=== PATIENT | female | born 1945 | race Caucasian/White ===

== ENCOUNTER → 2016-03-18 | Outpatient (CLI) | payer MEDICARE ==
--- NOTE | 2016-03-19 08:55 | MM ---
Reason for exam: screening (asymptomatic). Last mammogram was performed 1 year ago. History: Patient is postmenopausal and is nulliparous. Physical Findings: A clinical breast exam by your physician is recommended on an annual basis and results should be correlated with mammographic findings. MG Screening Mammo w CAD Bilateral CC and MLO view(s) were taken. Prior study comparison: March 15, 2015, bilateral MG screening mammo w CAD. March 03, 2014, bilateral MG screening mammo w CAD. The breast tissue is extremely dense which could obscure a lesion on mammography. Benign calcifications bilaterally. ASSESSMENT: Benign, BI-RAD 2 RECOMMENDATION: Routine screening mammogram of both breasts in 1 year.
== END | disposition home or self-care (01) ==
LOC: RADMAMWWP 09:41
PROVIDERS: ATTEND Obstetrics & Gynecology
DX: Z12.31 Encounter for screening mammogram for malignant neoplasm of breast (principal)

== ENCOUNTER → 2017-03-24 | Outpatient (CLI) | payer MEDICARE ==
--- NOTE | 2017-03-24 13:17 | BD ---
EXAMINATION TYPE: MG DEXA axial skeleton. DATE OF EXAM: 03/24/2017 COMPARISON: 03.03.2014 DEXA bone scan CLINICAL HISTORY: 71 YR OLD FEMALE: ICD-10 CODE: M85.9 OSTEOPENIA, Z13.820 OSTEOPOROSIS SCREEN Height: 61.2 Weight: 139 FRAX RISK QUESTIONS: Alcohol (3 or more units per day): NO Family History (Parent hip fracture): NO Glucocorticoids (More than 3mos): NO (Ex: prednisone, prednisolone, methylprednisolone, dexamethasone, and hydrocortisone). History of Fracture in Adulthood: NO Secondary Osteoporosis: NO 1. Type 1 Diabetes: NO 2. Hyperthyroidism: NO 3. Menopause before 45: NO 4. Malnutrition: NO 5. Chronic liver disease: NO Rheumatoid Arthritis: NO Current Tobacco Use: NO RISK FACTORS HISTORY OF: Family History of Osteoporosis: YES, HER MOTHER, NO FX Active: SOMEWHAT Diet low in dairy products/other sources of calcium: YES, LOW, ALLERGY Postmenopausal woman: YES, AT 52 Lost more than 2 inches in height since high school: NOT QUITE Hyperparathyroidism: NO Adrenal Insufficiency: NO MEDICATIONS: Osteoporosis Medications: TOOK IN PAST, ACTENOL X5 YRS, STOPPED FEW YRS AGO Additional Medications: CALCIUM AND VIT, WELLBUTRIN, REFLUX MEDS, STATIN FOR CHOLESTEROL, PROBIOTICS Additional History: EPIDURALS LUMBAR SPINE, NERVE ENDINGS BURNED IN LOWER SPINE, EXAM MEASUREMENTS: Bone mineral densitometry was performed using the [employer]. Bone mineral density as measured about the Lumbar spine is: ----- L1-L4(G/cm2): 1.289 T Score Values are as follows: ----- L1: 0.5 ----- L2: 0.2 ----- L3: 1.1 ----- L4: 1.5 ----- L1-L4: 0.9 Bone mineral density has: Increased 7.5% since study of: 03.03.2014 Bone mineral density about the R hip (g/cm2): 0.817 Bone mineral density about the L hip (g/cm2): 0.862 T Score values are as follows: -----R Neck: -2.1 -----L Neck: -2.0 -----R Total: -1.5 -----L Total: -1.2 Bone mineral density has: Increased 1.3% since study of: 03.03.2014 FRAX%S: THERE IS A 20.1% CHANCE OF A MAJOR OSTEOPOROTIC FX AND A 4.8% FOR HIP FX....PROBABILITY O F FX IN 10 YRS TIME IMPRESSION: Osteopenia (T Score between -2.5 and -1 as noted by T score values in both hips remains present. The re remains slightly increased risk of fracture and the patient may be considered for treatment. Re-Sc reen 2-5 years. NOTE: T-SCORE=SD OF THE YOUNG ADULT MEAN.
--- NOTE | 2017-03-25 07:53 | MM ---
Reason for exam: screening (asymptomatic). Last mammogram was performed 1 year ago. History: Patient is postmenopausal and is nulliparous. Physical Findings: A clinical breast exam by your physician is recommended on an annual basis and results should be correlated with mammographic findings. MG Screening Mammo w CAD Bilateral CC and MLO view(s) were taken. Prior study comparison: March 18, 2016, bilateral MG screening mammo w CAD. March 15, 2015, bilateral MG screening mammo w CAD. The breast tissue is heterogeneously dense. This may lower the sensitivity of mammography. Benign calcifications in the left breast. There is no discrete abnormality. No significant changes when compared with prior studies. ASSESSMENT: Benign, BI-RAD 2 RECOMMENDATION: Routine screening mammogram of both breasts in 1 year.
== END | disposition home or self-care (01) ==
LOC: RADMAMWWP 10:20
PROVIDERS: ATTEND Obstetrics & Gynecology
DX: Z12.31 Encounter for screening mammogram for malignant neoplasm of breast (principal); M85.80 Other specified disorders of bone density and structure, unspecified site; Z80.3 Family history of malignant neoplasm of breast
CPT/HCPCS: 77067; 77080

== ENCOUNTER → 2018-03-25 | Outpatient (CLI) | payer MEDICARE ==
--- NOTE | 2018-03-26 10:04 | MM ---
Reason for exam: screening (asymptomatic). Last mammogram was performed 1 year ago. History: Patient is postmenopausal and is nulliparous. Physical Findings: A clinical breast exam by your physician is recommended on an annual basis and results should be correlated with mammographic findings. MG Screening Mammo w CAD Bilateral CC and MLO view(s) were taken. Prior study comparison: March 24, 2017, bilateral MG screening mammo w CAD. March 18, 2016, bilateral MG screening mammo w CAD. The breast tissue is heterogeneously dense. This may lower the sensitivity of mammography. Stable calcifications. There is chronic nodularity bilaterally. There is no dominant lesion. No significant changes when compared with prior studies. ASSESSMENT: Benign, BI-RAD 2 RECOMMENDATION: Routine screening mammogram of both breasts in 1 year.
== END | disposition home or self-care (01) ==
LOC: RADMAMWWP 12:49
PROVIDERS: ATTEND Obstetrics & Gynecology
DX: Z12.31 Encounter for screening mammogram for malignant neoplasm of breast (principal)
CPT/HCPCS: 77067

== ENCOUNTER 2018-06-09 09:17 | Day surgery (SDC) | payer MEDICARE ==
[2018-06-02 16:06] VITALS: BMI 25.0
[~2018-06-09 09:17] MED LIST: HYDROmorphone 0.5 MG/0.5 ML SYRINGE IVP PRN; LACTATED RINGERS 1,000 ML IV SCH; MIDAZOLAM (PF) 2 MG/2 ML VIAL IV PRN; ONDANSETRON 4 MG/2 ML VIAL IVP ONE; Pre Op ABX Message 1 EACH MISC MISCELLANE ONE
[2018-06-09] MEDS ORDERED: LIDOCAINE 1% 20 ML VIAL (10MG/ML) FOR IV START INTRADERMA ONE (10:01)
[2018-06-09 10:25] VITALS: TEMP 97.9
[2018-06-09] MEDS ORDERED: PROPOFOL 10 MG/ML 20 ML VIAL IV ONE (10:46)
[2018-06-09] MEDS ORDERED: MIDAZOLAM 2 MG/2 ML VIAL ONE (10:46)
[2018-06-09] MEDS ORDERED: BUPIVACAINE (PF) 0.5% 30 ML VIAL SQ ONE (10:58)
[2018-06-09] MEDS ORDERED: LIDOCAINE 2% INJ 20 MG/ML SQ ONE (10:58)
[2018-06-09 11:48] VITALS: BP 145/77; PULSE 76; RESP 16
--- NOTE | 2018-06-09 18:32 | OP ---
OPERATIVE REPORT DATE OF PROCEDURE: 06/09/2018 PREOPERATIVE DIAGNOSES: 1. Mass, palm of left hand. 2. Left ring trigger finger. FINAL DIAGNOSES: 1. Mass, palm of left hand. 2. Left ring trigger finger. PROCEDURES: 1. Excision of mass, palm and the left ring finger. 2. Left ring trigger finger release. GROSS PATHOLOGY: The mass was most likely a benign fibrous nodule. There was no evidence of a ganglion cyst along the flexor tendon sheath in this area. There was some minor fraying of the superficial portion of the flexor digitorum superficialis, which is likely the cause of the triggering. PROCEDURE DESCRIPTION: This 72-year-old woman was taken to the operative suite, given IV sedation, and a local anesthetic consisting of Xylocaine and Marcaine, both without epinephrine, was injected at the base of the left ring finger in the distal palmar skin crease. The hand was prepped and draped in the usual manner. It was elevated and exsanguinated. Cuff was inflated to 250 mmHg. A transverse incision was made in the distal palmar skin crease. Procedure was performed under 4.5 loupe magnification. The tender mass intraoperatively appeared to be most likely benign fibrous nodule. This was excised under blunt and sharp dissection and was sent to the lab as a specimen. The A1 juan was then identified and released longitudinally. The flexor tendon was retracted in the wound to ensure no adhesions or further triggering was present. Some minor superficial fraying was noted as described above. The wound was then thoroughly irrigated. Tourniquet was released. Hemostasis was satisfactory with pressure. The wound was closed with 5-0 nylon suture. Soft bulky dressing was applied. She was taken to the recovery room in satisfactory condition. MMODL / IJN: [id number] /
== END 2018-06-09 11:52 | disposition home or self-care (01) ==
LOC: OR 09:17
PROVIDERS: ATTEND Orthopaedic Surgery Hand Surgery
DX: M65.342 Trigger finger, left ring finger (principal); R22.9 Localized swelling, mass and lump, unspecified; E78.5 Hyperlipidemia, unspecified; M79.7 Fibromyalgia; F32.9 Major depressive disorder, single episode, unspecified; M85.80 Other specified disorders of bone density and structure, unspecified site; K21.9 Gastro-esophageal reflux disease without esophagitis; K58.9 Irritable bowel syndrome, unspecified; Z79.1 Long term (current) use of non-steroidal anti-inflammatories (NSAID); Z79.891 Long term (current) use of opiate analgesic; Z79.899 Other long term (current) drug therapy; Z88.2 Allergy status to sulfonamides; H40.9 Unspecified glaucoma; F39 Unspecified mood [affective] disorder
CPT/HCPCS: 88304; 11422; 26055; J2001; J2250; J2405; J2704

== ENCOUNTER → 2018-07-20 | Outpatient (CLI) | payer MEDICARE | END | disposition home or self-care (01) | LOC: LABWHC1 11:00 | PROVIDERS: ATTEND Nurse Practitioner Family | DX: J30.89 Other allergic rhinitis (principal) | CPT/HCPCS: 36415 ==

== ENCOUNTER → 2019-03-29 | Outpatient (CLI) | payer MEDICARE ==
--- NOTE | 2019-03-29 11:25 | MM ---
Reason for exam: screening (asymptomatic). Last mammogram was performed 1 year ago. History: Patient is postmenopausal and is nulliparous. Family history of breast cancer in maternal aunt at age 85. Physical Findings: A clinical breast exam by your physician is recommended on an annual basis and results should be correlated with mammographic findings. MG 3D Screening Mammo W/Cad Bilateral CC and MLO view(s) were taken. Prior study comparison: March 25, 2018, bilateral MG screening mammo w CAD. March 24, 2017, bilateral MG screening mammo w CAD. The breast tissue is heterogeneously dense. This may lower the sensitivity of mammography. Benign appearing bilateral calcifications. No suspicious abnormality. No significant changes when compared with prior studies. ASSESSMENT: Benign, BI-RAD 2 RECOMMENDATION: Routine screening mammogram of both breasts in 1 year.
== END | disposition home or self-care (01) ==
LOC: RADMAMWWP 10:13
PROVIDERS: ATTEND Obstetrics & Gynecology
DX: Z12.31 Encounter for screening mammogram for malignant neoplasm of breast (principal)
CPT/HCPCS: 77063; 77067

== ENCOUNTER → 2020-04-24 | Outpatient (CLI) | payer MEDICARE ==
--- NOTE | 2020-04-24 17:08 | BD ---
EXAMINATION TYPE: Axial Bone Density DATE OF EXAM: 04/24/2020 COMPARISON: 03.24.2017 CLINICAL HISTORY: 74 YR OLD FEMALE.....ICD-10 CODE: N95.1 POST MENOPAUSAL Height: 60.4 Weight: 142 FRAX RISK QUESTIONS: Glucocorticoids (More than 3mos): YES (Ex: prednisone, prednisolone, methylprednisolone, dexamethasone, and hydrocortisone). RISK FACTORS HISTORY OF: Surgery to Spine ONLY EPIDURAL AND NERVE SURG IN BACK Family History of Osteoporosis: YES, MOTHER SPINAL COMPRESSION FXS Diet low in dairy products/other sources of calcium: YES Postmenopausal woman: YES, AT AGE 52 YRS Lost more than 2 inches in height since high school: YES Hyperparathyroidism: UNSURE Adrenal Insufficiency: UNSURE MEDICATIONS: Prednisone or other steroids: YES, INHALERS FOR ASTHMA, AND EYE MEDS Osteoporosis Medications: ALTENOL FOR 5 YRS, OFF FOR ABOUT 10+ YRS Additional Medications: WELLBUTRIN, REFLUX, STATIN FOR CHOLESTEROL, CALCIUM AND MULTIVITAMIN, VIT D, RELAFEN, GABAPENTIN, Additional History: REFLUX, CHOLESTEROL, OSTEOARTHRITIS, FIBROMYALGIA, EXAM MEASUREMENTS: Bone mineral densitometry was performed using the [employer]. Bone mineral density as measured about the Lumbar spine is: ----- L1-L4(G/cm2): 1.260 T Score Values are as follows: ----- L1: 0.4 ----- L2: -0.2 ----- L3: 1.2 ----- L4: 1.1 ----- L1-L4: 0.6 Bone mineral density has: Decreased -2.6% SINCE 03.24.2017 STUDY Bone mineral density about the R hip (g/cm2): 0.823 Bone mineral density about the L hip (g/cm2): 0.881 T Score values are as follows: -----R Neck: -2.0 -----L Neck: -2.1 -----R Total: -1.5 -----L Total: -1.0 Bone mineral density has: Increased 1.4% SINCE 03.24.2017 STUDY FRAX%s: THERE IS A 32.4% CHANCE FOR A MAJOR OSTEOPOROTIC FX AND A 15.3% FOR HIP......PROBABILITY FO R FX IN 10 YRS TIME IMPRESSION: Osteopenia (T Score between -2.5 and -1). There is slightly increased risk of fracture and the patient may be considered for treatment. Re-Screen 2-5 years. NOTE: T-SCORE=SD OF THE YOUNG ADULT MEAN.
--- NOTE | 2020-04-25 11:27 | MM ---
Reason for exam: screening (asymptomatic). Last mammogram was performed 1 year and 1 month ago. History: Patient is postmenopausal and is nulliparous. Family history of breast cancer in maternal aunt at age 85. Physical Findings: A clinical breast exam by your physician is recommended on an annual basis and results should be correlated with mammographic findings. MG 3D Screening Mammo W/Cad Bilateral CC and MLO view(s) were taken. Prior study comparison: March 29, 2019, bilateral MG 3d screening mammo w/cad. March 25, 2018, bilateral MG screening mammo w CAD. The breast tissue is heterogeneously dense. This may lower the sensitivity of mammography. There are benign appearing round calcifications bilaterally. Previous mammotome biopsy in the left breast. There is chronic nodularity in the left axilla. There is no discrete abnormality. ASSESSMENT: Benign, BI-RAD 2 RECOMMENDATION: Routine screening mammogram of both breasts in 1 year.
== END | disposition home or self-care (01) ==
LOC: RADMAMWWP 10:07
PROVIDERS: ATTEND Obstetrics & Gynecology
DX: Z12.31 Encounter for screening mammogram for malignant neoplasm of breast (principal); M85.80 Other specified disorders of bone density and structure, unspecified site
CPT/HCPCS: 77063; 77067; 77080

== ENCOUNTER 2020-07-09 20:15 | Emergency (ER) | payer MEDICARE ==
[2020-07-09 20:20] VITALS: TEMP 98.6
[2020-07-09] MEDS ORDERED: traMADol 50 MG TAB PO STA (21:15)
--- NOTE | 2020-07-09 21:20 | ED ---
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 Place Fall Occurred: home Loss of Consciousness: none Prolonged Down Time?: no Symptoms Prior to Fall: none Location - Extremities: Left: Thigh, Leg Severity scale (1-10): 9 Quality: aching Context: tripped/slipped Associated Symptoms: denies <Evans Duarte - Last Filed: 07/09/20 22:43> <Skyler Gonzalez - Last Filed: 07/09/20 23:10> - General Chief Complaint: Fall Stated Complaint: fall Time Seen by Provider: 07/09/20 20:43 - History of Present Illness Initial Comments: 74-year-old pleasant white female presents to the emergency room with complaints of falling off of one step in the garage after tripping over rangel. Patient states she fell twisting her left leg and landed on her left side. Patient states her left leg is painful and unable to bear weight. Patient denies any hip pain, knee pain or ankle pain. Patient states no loss of consciousness, did not hit her head. Patient has a small abrasion to her left elbow. Patient has a history of fibromyalgia, and irritable bowel syndrome. Patient is alert and oriented 4. States takes tramadol 50 mg as needed for her fibromyalgia did not take any today. Patient denies smoking history. (Evans Duarte) - Related Data Home Medications Medication Instructions Recorded Confirmed Brimonidine Tartrate [Alphagan P 1 drop BOTH EYES BID 06/02/18 06/09/18 0.2% Ophth Soln] Calcium Carbonate [Calcium] 600 mg PO DAILY 06/02/18 06/09/18 Cyanocobalamin (Vitamin B-12) 1,000 mcg PO DAILY 06/02/18 06/09/18 [Vitamin B-12] Esomeprazole Magnesium [NexIUM] 20 mg PO BID 06/02/18 06/09/18 Fexofenadine HCl [Danuta Allergy] 180 mg PO DAILY 06/02/18 06/09/18 Gabapentin [Neurontin] 300 mg PO BID 06/02/18 06/09/18 Montelukast [Singulair] 10 mg PO DAILY 06/02/18 06/09/18 Multivitamins, Thera [Multivitamin 1 tab PO DAILY 06/02/18 06/09/18 (formulary)] Nabumetone [Relafen] 750 mg PO BID 06/02/18 06/09/18 Pravastatin Sodium [Pravachol] 20 mg PO DAILY 06/02/18 06/09/18 Ranitidine HCl [Zantac] 150 mg PO HS 06/02/18 06/09/18 buPROPion [Wellbutrin] 75 mg PO DAILY 06/02/18 06/09/18 traMADol HCL [Ultram] 50 mg PO Q6HR PRN 06/02/18 06/09/18 Allergies Allergy/AdvReac Type Severity Reaction Status Date / Time Sulfa (Sulfonamide Allergy Unknown Verified 07/09/20 20:19 Antibiotics) Childhood Review of Systems ROS Other: All systems not noted in ROS Statement are negative. <Evans Duarte - Last Filed: 07/09/20 22:43> ROS Other: All systems not noted in ROS Statement are negative. <Skyler Gonzalez - Last Filed: 07/09/20 23:10> ROS Statement: Those systems with pertinent positive or pertinent negative responses have been documented in the HPI. Past Medical History Past Medical History: Eye Disorder, Fibromyalgia, Hyperlipidemia Additional Past Medical History / Comment(s): IBS, ALLERGIES, "INCREASED PRESSURE IN EYES" History of Any Multi-Drug Resistant Organisms: None Reported Past Surgical History: Orthopedic Surgery Additional Past Surgical History / Comment(s): MULTIPLE TRIGGER FINGER RELEASE, EPIDURALS FOR PAIN, HELEN CATARACTS Past Anesthesia/Blood Transfusion Reactions: Previous Problems w/ Anesthesia Additional Past Anesthesia/Blood Transfusion Reaction / Comment(s): STATES "I DON'T NEED VERY MUCH ANESTHESIA" Past Psychological History: Depression Smoking Status: Never smoker Past Alcohol Use History: Rare Past Drug Use History: None Reported <Evans Duarte - Last Filed: 07/09/20 22:43> General Exam Limitations: no limitations General appearance: alert, in no apparent distress Head exam: Present: atraumatic, normocephalic, normal inspection Eye exam: Present: normal appearance, PERRL, EOMI. Absent: scleral icterus, conjunctival injection, periorbital swelling ENT exam: Present: normal exam, normal oropharynx, mucous membranes moist Neck exam: Present: normal inspection, full ROM. Absent: tenderness, meningismus, lymphadenopathy, thyromegaly Respiratory exam: Present: normal lung sounds bilaterally. Absent: respiratory distress, wheezes, rales, rhonchi, stridor, chest wall tenderness, accessory muscle use, decreased breath sounds Cardiovascular Exam: Present: regular rate, normal rhythm, normal heart sounds. Absent: systolic murmur, diastolic murmur, rubs, gallop, clicks GI/Abdominal exam: Present: soft, normal bowel sounds. Absent: distended, tenderness, guarding, rebound, rigid, mass, pulsatile mass, hernia Extremities exam: Present: normal inspection, full ROM, normal capillary refill. Absent: tenderness, pedal edema, joint swelling, calf tenderness Left Hip exam: Absent: full ROM, tenderness, laceration, deformity, shortening Upper Leg exam: Present: tenderness. Absent: laceration, deformity Knee exam: Present: normal inspection, full knee extension. Absent: tenderness, swelling, abrasion, ecchymosis, deformity, erythema Lower Leg exam: Present: normal inspection. Absent: tenderness, swelling, abrasion, laceration, ecchymosis, deformity Ankle exam: Present: normal inspection Foot/Toe exam: Present: normal inspection Neurovascular tendon exam: Present: no vascular compromise. Absent: pulse deficit, abnormal cap refill, extremity cold to touch, pallor, foot drop Right Knee exam: Present: normal inspection. Absent: tenderness Lower Leg exam: Present: normal inspection. Absent: tenderness Ankle exam: Present: normal inspection. Absent: tenderness Foot/Toe exam: Present: normal inspection. Absent: tenderness Neurovascular tendon exam: Present: no vascular compromise. Absent: pallor Back exam: Present: normal inspection. Absent: tenderness, CVA tenderness (R), CVA tenderness (L) Neurological exam: Present: alert, oriented X3, CN II-XII intact Psychiatric exam: Present: normal affect, normal mood Skin exam: Present: warm, dry, intact, normal color. Absent: rash <Satish Duartei - Last Filed: 07/09/20 22:43> Course <Skyler Gonzalez - Last Filed: 07/09/20 23:10> Vital Signs 07/09/20 20:16 Temperature 98.6 F Pulse Rate 79 Respiratory 20 Rate Blood Pressure 187/83 O2 Sat by Pulse 95 Oximetry - Reevaluation(s) Reevaluation #1: 07/09/20 23:08 Record is reviewed (Skyler Gonzalez) Reevaluation #2: 07/09/20 23:08 Patient has pain control (Skyler Gonzalez) - Consultations Consultation #1: Spoke with [facility] for do agree to transfer with orthopedics abd the ER (Skyler Gonzalez) Medical Decision Making - EKG Data EKG shows normal: sinus rhythm, intervals (Ventricular rate of 84, MI interval 0.16, QRS of 136, QTC of 0.42) When compared to previous EKG there are: previous EKG unavailable <Evans Duarte - Last Filed: 07/09/20 22:43> - Radiology Data Radiology results: report reviewed (XR pelvis hip positive L acetabular fracture), image reviewed <Skyler Gonzalez - Last Filed: 07/09/20 23:10> - Medical Decision Making X-ray shows a comminuted and mildly displaced fracture of the left acetabulum and fracture of the left superior inferior pubic rami without dislocation. Patient neurovascularly intact pedal pulses present. Patient denies any numbness or tingling, no incontinence or saddle anesthesia. case discussed with Dr. Gonzalez, preparing to transfer to [facility]. (Evans Duarte) - Lab Data Lab Results 07/09/20 Range/Units 22:52 Blood Type Recheck No Previous Record Bld Type Recheck Status CABO Indicated Spec Expiration Date 07/12/2020 - 2351 Disposition <Evans Duarte - Last Filed: 07/09/20 22:43> Is patient prescribed a controlled substance at d/c from ED?: No - Out of Hospital Transfer - Req. Specs Out of Hospital Transfer - Requested Specifics: Other Emergency Center ([facility]) <Skyler Gonzalez - Last Filed: 07/09/20 23:10> Clinical Impression: Fall, Left acetabular fracture Disposition: OTHER INSTITUTION NOT DEFINED Condition: Fair Referrals: Charlotte Rivers MD [Primary Care Provider] - 1-2 days
[2020-07-09] MEDS ORDERED: SODIUM CHLORIDE 0.9% 1,000 ML IV STA (21:45)
[2020-07-09] MEDS ORDERED: MORPHINE SULFATE 4 MG/ML SYRINGE IVP STA (21:57)
--- NOTE | 2020-07-09 22:09 | XR ---
Result: History: Pain status post fall. Comparison: None available. Technique: AP view of the pelvis. 2 views of the left femur. Findings: There is comminuted and mildly displaced fracture of the left acetabulum. There is also fracture of t he left superior-inferior pubic rami. No evidence of dislocation. Otherwise no acute fracture of the left femur. Lucency overlying the distal left femur on the crossta ble lateral view corresponds to overlapping soft tissue. Impression: Left acetabular and pubic rami fractures. No acute fracture of the left femur.
--- NOTE | 2020-07-09 22:13 | XR ---
EXAMINATION TYPE: XR chest 1V DATE OF EXAM: 07/09/2020 COMPARISON: NONE HISTORY: Pain status post fall. TECHNIQUE: Single frontal view of the chest is obtained. FINDINGS: There is no focal air space opacity, pleural effusion, or pneumothorax seen. The cardiac silhouette size is within normal limits. The osseous structures are intact. IMPRESSION: No acute process.
[2020-07-09 23:14] LABS: Basophils # (A) 0.1 k/uL (0-0.2); Basophils % (A) 0 %; Eosinophils # (A) 0.1 k/uL (0-0.7); Eosinophils % (A) 1 %; HCT 39.2 % (34.0-46.0); HGB 13.4 gm/dL (11.4-16.0); Lymphocytes # (A) 1.1 k/uL (1.0-4.8); Lymphocytes % (A) 8 %; MCH 32.2 pg (25.0-35.0); MCHC 34.3 g/dL (31.0-37.0); MCV 93.9 fL (80.0-100.0); Mean Platelet Volume 6.9; Monocytes # (A) 0.6 k/uL (0-1.0); Monocytes % (A) 4 %; Neutrophils # (A) 12.8 k/uL (1.3-7.7); Neutrophils % (A) 87 %; Platelet Count 246 k/uL (150-450); RBC 4.17 m/uL (3.80-5.40); RDW 12.4 % (11.5-15.5); WBC 14.8 k/uL (3.8-10.6)
[2020-07-09 23:22] LABS: INR 0.9 (<1.2); Partial Thromboplastin Time 23.4 sec (22.0-30.0); Prothrombin Time 9.8 sec (9.0-12.0)
[2020-07-09 23:41] LABS: ALT 32 U/L (4-34); AST 47 U/L (14-36); African American GFR (CKD) >90 (>60 ml/min/1.73 sqM); Albumin 4.5 g/dL (3.5-5.0); Alcohol <10 mg/dL; Alkaline Phosphatase 135 U/L (38-126); Anion Gap 10 mmol/L; Blood Urea Nitrogen 12 mg/dL (7-17); Calcium 9.5 mg/dL (8.4-10.2); Carbon Dioxide 27 mmol/L (22-30); Chloride 103 mmol/L (98-107); Glucose 120 mg/dL (74-99); Non-African American GFR(CKD) 83 (>60 ml/min/1.73 sqM); Potassium 3.6 mmol/L (3.5-5.1); Sodium 140 mmol/L (137-145); Total Bilirubin 0.8 mg/dL (0.2-1.3); Total Protein 7.6 g/dL (6.3-8.2)
[2020-07-10 00:51] VITALS: BP 167/80; PULSE 71; RESP 16
== END 2020-07-10 00:10 | disposition other institution (70) ==
LOC: EC 20:15
DX: S32.402A Unspecified fracture of left acetabulum, initial encounter for closed fracture (principal); S32.592A Other specified fracture of left pubis, initial encounter for closed fracture; M79.7 Fibromyalgia; E78.5 Hyperlipidemia, unspecified; Z88.2 Allergy status to sulfonamides; Z79.1 Long term (current) use of non-steroidal anti-inflammatories (NSAID); W10.9XXA Fall (on) (from) unspecified stairs and steps, initial encounter; W01.0XXA Fall on same level from slipping, tripping and stumbling without subsequent striking against object, initial encounter; Y92.59 Other trade areas as the place of occurrence of the external cause
CPT/HCPCS: 96361; 96374; 99285; 36415; 93005; 86900; 86901; 80053; 83605; 84484; 85025; 85610; 85730; 86850; 72170; 73552; 71045; G0480; J2270; 80320

== ENCOUNTER → 2020-11-02 | Outpatient (CLI) | payer MEDICARE ==
--- NOTE | 2020-11-03 10:00 | ECHOF ---
Referral Reason:R01.1 undiagnosed cardiac murmur MEASUREMENTS -------- HEIGHT: 154.9 cm WEIGHT: 63.5 kg BP: RVIDd: 2.8 cm (< 3.3) IVSd: 1.4 cm (0.6 - 1.1) LVIDd: 3.4 cm (3.9 - 5.3) LVPWd: 1.4 cm (0.6 - 1.1) IVSs: 1.7 cm LVIDs: 2.0 cm LVPWs: 2.2 cm LAESV Index (A-L): 19.90 ml/m Ao Diam: 2.9 cm (2.0 - 3.7) AV Cusp: 1.7 cm (1.5 - 2.6) LA Diam: 3.2 cm (2.7 - 3.8) MV E Henry: 0.97 m/s MV DecT: 111 ms MV A Henry: 1.62 m/s MV E/A Ratio: 0.60 RAP: 5.00 mmHg RVSP: 39.23 mmHg FINDINGS -------- Sinus rhythm. This was a technically adequate study. The left ventricular size is normal. There is moderate concentric left ventricular hypertrophy. O verall left ventricular systolic function is normal with, an EF between 65 - 70 %. The diastolic fi lling pattern is normal for the age of the patient 24.37. The right ventricle is normal in size. Normal LA size by volume 22+/-6 ml/m2. The right atrial size is normal. Interatrial and interventricular septum intact. The aortic valve is trileaflet and appears structurally normal. There is no evidence of aortic regu rgitation. There is no evidence of aortic stenosis. Mild mitral regurgitation is present. Mild tricuspid regurgitation present. There is mild pulmonary hypertension. The right ventricular systolic pressure, as measured by Doppler, is 39.23mmHg. There is no pulmonic regurgitation present. The aortic root size is normal. IVC Not well visulized. There is no pericardial effusion. CONCLUSIONS -------- 1. The left ventricular size is normal. 2. There is moderate concentric left ventricular hypertrophy. 3. Overall left ventricular systolic function is normal with, an EF between 65 - 70 %. 4. The right ventricle is normal in size. 5. Mild mitral regurgitation is present. 6. Mild tricuspid regurgitation present. 7. There is mild pulmonary hypertension. 8. The right ventricular systolic pressure, as measured by Doppler, is 39.23mmHg. HEAD OF BIOLOGY: Caitlin Maxwell RDCS
== END | disposition home or self-care (01) ==
LOC: RADECHMAIN 11:55
PROVIDERS: ATTEND Family Medicine
DX: R01.1 Cardiac murmur, unspecified (principal); I34.0 Nonrheumatic mitral (valve) insufficiency; I07.1 Rheumatic tricuspid insufficiency; I10 Essential (primary) hypertension
CPT/HCPCS: 93306

== ENCOUNTER → 2021-04-25 | Outpatient (CLI) | payer MEDICARE ==
--- NOTE | 2021-04-25 14:33 | MM ---
Reason for exam: screening (asymptomatic). Last mammogram was performed 1 year ago. History: Patient is postmenopausal and is nulliparous. Family history of breast cancer in maternal aunt at age 85. Physical Findings: A clinical breast exam by your physician is recommended on an annual basis and results should be correlated with mammographic findings. MG 3D Screening Mammo W/Cad Bilateral CC and MLO view(s) were taken. Prior study comparison: April 24, 2020, bilateral MG 3d screening mammo w/cad. March 29, 2019, bilateral MG 3d screening mammo w/cad. The breast tissue is extremely dense which could obscure a lesion on mammography. Stable benign calcifications. No significant changes when compared with prior studies. ASSESSMENT: Benign, BI-RAD 2 RECOMMENDATION: Routine screening mammogram of both breasts in 1 year.
== END | disposition home or self-care (01) ==
LOC: RADMAMWWP 10:50
PROVIDERS: ATTEND Obstetrics & Gynecology
DX: Z12.31 Encounter for screening mammogram for malignant neoplasm of breast (principal)
CPT/HCPCS: 77063; 77067

== ENCOUNTER → 2021-04-26 | Outpatient (CLI) | payer MEDICARE ==
--- NOTE | 2021-04-26 21:24 | CT ---
EXAMINATION TYPE: CT thor lumbar spine wo con DATE OF EXAM: 04/26/2021 COMPARISON: MRI dated 12/15/2018 HISTORY: BACK PAIN CT DLP: 716.3 mGycm Automated exposure control for dose reduction was used. TECHNIQUE: Multiplanar CT scan of the thoracic and lumbar spine without IV contrast administration. FINDINGS: Severe degenerative changes of the lower cervical spine. Levoscoliosis of the thoracolumbar junction with dextroscoliosis of the mid lumbar spine. Mild upper endplate depression of T3 vertebral body wit h about 25% height reduction without displaced bone fragment or surrounding fat stranding, likely chr onic. There is also upper endplate depression of T12 vertebral body with about 40% height reduction, without bone fragment, possibly chronic. No other definite vertebral body collapse or acute displaced fracture. No significant thoracic disc disease, central spinal canal stenosis or neuroforaminal stenosis. Retro listhesis of L1 over L2, L2 over L3 and L3 over L4. Markedly degenerated T12-L1, L1-2, L3-4 and L4-5 discs. Multilevel lower thoracic and lumbar opposing endplate osteophytosis and subchondral sclerotic changes. Left L3-4, right L4-5 and right L5-S1 facet osteoarthropathy. At T12-L1 level: Right extraforaminal focal disc protrusion, causing no significant central spinal ca nal stenosis or significant neuroforaminal stenosis. At L1-2 level: Severely degenerated disc with mild retrolisthesis and diffuse posterior disc bulge, c ausing no significant central spinal canal stenosis and mild left neuroforaminal stenosis. At L2-3 level: Diffuse posterior disc bulge more inclined to the right side with right extraforaminal protrusion, causing no significant central spinal canal stenosis or significant neuroforaminal steno sis. At L3-4 level: Degenerated disc with vacuum phenomenon, associated with diffuse posterior disc bulge, posterior osteophytosis and slightly prominent posterior epidural fat, causing mild central spinal c anal stenosis, mild right and severe left neuroforaminal stenosis compressing the left L3 nerve root. At L4-5 level: Degenerated disc with vacuum phenomenon, diffuse posterior disc bulge, more inclined t o the right side, associated with ligamentum flavum hypertrophy and calcification, posterior osteophy tosis and mild disc calcification, causing moderate central spinal canal stenosis and severe right ne uroforaminal stenosis, markedly compressing the right L4 nerve root. At L5-S1 level: Diffuse posterior disc bulge with focal central and left paracentral disc protrusion as well as focal left foraminal protrusion, associated with facet osteoarthropathy, causing mild to m oderate central spinal canal stenosis without significant neuroforaminal stenosis. Scattered arterial atherosclerotic calcifications. 4 mm right lower lung lobe nodule with right lung base peripheral reticulations and ground glass opacities. 2 mm left lower lung lobe nodule. Recommend further elective chest CT assessment. No paraspinal lesion. IMPRESSION: Mild compression fracture of T3 and T12 vertebral bodies as described above, likely chronic. No other definite vertebral body collapse or acute fracture. Degenerative changes of the lower cervical spine. Advanced degenerative changes of the lumbar spine w ith multilevel DDD, central spinal canal stenosis, neuroforaminal stenosis and nerve root compression as detailed above. Recommend clinical correlation. Further MRI assessment of the lumbar spine can be considered if clinically required. Other incidental findings and recommendations as described above.
== END | disposition home or self-care (01) ==
LOC: RADCTMAIN 15:27
PROVIDERS: ATTEND Orthopaedic Surgery
DX: M48.54XA Collapsed vertebra, not elsewhere classified, thoracic region, initial encounter for fracture (principal); M50.30 Other cervical disc degeneration, unspecified cervical region
CPT/HCPCS: 72128; 72131

== ENCOUNTER → 2021-05-01 | Outpatient (CLI) | payer MEDICARE ==
--- NOTE | 2021-05-01 16:05 | MR ---
EXAMINATION TYPE: MR tspine/lspine wo con DATE OF EXAM: 05/01/2021 COMPARISON: CT thoracic and lumbar spine 5 days ago. Outside MRI lumbar spine December 15, 2018 HISTORY: Mid and lower back pain. TECHNIQUE: Multiplanar, multisequence imaging of the thoracic and lumbar spine are performed without IV contrast. FINDINGS: Thoracic spine: Coronal images redemonstrated a levoconvex scoliosis centered in the mid to lower thoracic spine. Ali gnment is straightened in the mid to lower thoracic spine on sagittal images. Spinal cord shows jam l caliber and signal as it courses the thoracic spine. Few prominent Schmorl nodes in the superior T3 and T12 endplates otherwise vertebral body heights are satisfactory. Bone marrow signal intensity is preserved. Tiny posterior disc herniation effaces the anterior thecal sac at T8-T9 and T11-T12 level sagittal image 8. Review of the axial images shows no significant spinal canal stenosis or neural foraminal narrowing a t any thoracic level. No suspicious incidental finding in the visualized thorax or upper abdomen. IMPRESSION: Scoliotic curvature. Loss of normal lumbar lordosis. Mild multilevel degenerative change s as detailed above. Lumbar spine: Persistent dextroconvex scoliosis centered at L2-L3 level. Sagittal images of the lumbar spine show v ertebral body Heights to remain satisfactory. Multilevel spondylolisthesis or grade 1 retrolisthesis throughout the lumbar spine are redemonstrated. Multilevel disc desiccation and mild to moderate disc space narrowing with relative sparing of L5-S1 level. Most prominent disc space narrowing is noted a t the left L3-L4 level. [id number] multilevel anterior spurring The conus medullaris remains n ormal in position and signal ending inferior L1 level. Axial images at T12-L1 level shows posterior spur disc complex mildly effacing the anterior thecal sa c. Axial images at L1-L2 level show mild/moderate broad-based posterior disc protrusion mildly effacing the anterior thecal sac. Patent bilateral neural foramina. Axial images at the L2-L3 level show mild broad disc bulge with right lateral disc protrusion compone nt. Patent bilateral neural foramina. Axial images at the L3-L4 level shows mild to moderate broad disc bulge mildly effacing intrathecal s ac with mild/moderate left greater than right facet arthropathy bilaterally. There is severe left dayami ed neural foraminal narrowing redemonstrated. Axial images at L4-L5 levels with mild/moderate right greater than left facet arthropathy and ligamen t flavum hypertrophy effacing posterior lateral thecal sac. There is broad-based posterior central di sc protrusion effacing right anterolateral thecal sac. There is mild left and moderate to severe righ t-sided neural foraminal narrowing with encroachment on right L4 nerve felt Present. Axial images at L5-S1 level show mild facet arthropathy right greater than left with focal central di sc protrusion mildly effacing the anterior thecal sac. Patent bilateral neural foramina are seen. IMPRESSION: Multilevel spondylolisthesis and degenerative changes in the lumbar spine as detailed abo ve.
== END | disposition home or self-care (01) ==
LOC: RADMRIMAIN 12:40
PROVIDERS: ATTEND Orthopaedic Surgery
DX: M43.16 Spondylolisthesis, lumbar region (principal); M54.6 Pain in thoracic spine
CPT/HCPCS: 72146; 72148

== ENCOUNTER → 2021-06-19 | Outpatient (CLI) | payer MEDICARE ==
[2021-06-19 15:19] LABS: HCT 40.7 % (37.2-46.3); HGB 13.2 g/dL (12.0-15.0); MCH 31.4 pg (27.0-32.0); MCHC 32.4 g/dL (32.0-37.0); MCV 96.7 fL (80.0-97.0); Mean Platelet Volume 9.8 fL (9.5-12.2); NRBC Per 100 WBC 0 /100 WBCS (0.0-0.0); Platelet Count 310 X 10*3/uL (140-440); RBC 4.21 X 10*6/uL (4.10-5.20); RDW 12.9 % (11.5-14.5); WBC 6.58 X 10*3/uL (4.50-10.00)
[2021-06-19 15:39] LABS: Creatine Kinase 134 U/L (26-186); Magnesium 2.3 mg/dL (1.5-2.4); Uric Acid 6.7 mg/dL (2.9-7.7)
[2021-06-19 16:32] LABS: Chol/HDL Ratio 4.54 Ratio; LDL Cholesterol,Calculated 118.1 mg/dL (0.0-131.0); Rheumatoid Factor, Qnt <10 IU/mL (0-15); Vitamin B12 >2000.0 pg/mL (200.0-944.0)
[2021-06-19 17:56] LABS: ALT 28 U/L (8-44); AST 31 U/L (13-35); African American GFR (CKD) 20.4 (60.0-200.0); Albumin 3.9 g/dL (3.8-4.9); Albumin/Globulin Ratio 0.87 (1.60-3.17); Alkaline Phosphatase 112 U/L (41-126); BUN/Creat Ratio 5.58 Ratio (12.00-20.00); Blood Urea Nitrogen 14.5 mg/dL (9.0-27.0); Calcium 8.7 mg/dL (8.7-10.3); Carbon Dioxide 28.9 mmol/L (20.0-27.5); Chloride 100 mmol/L (96-109); Globulin 4.5 g/dL (1.6-3.3); Glucose 100 mg/dL (70-110); Non-African American GFR(CKD) 17.6 (60.0-200.0); Sodium 139 mmol/L (135-145); Total Protein 8.4 g/dL (6.2-8.2)
[2021-06-19 20:28] LABS: Cyclic Citrull Pep IgG Unit <0.5 U/mL; Cyclic Citrullinated Pep IgG NEGATIVE (NEGATIVE)
== END | disposition home or self-care (01) ==
LOC: LABWHC1 08:17
PROVIDERS: ATTEND Family Medicine
DX: L92.0 Granuloma annulare (principal); K21.9 Gastro-esophageal reflux disease without esophagitis; E78.5 Hyperlipidemia, unspecified; F95.9 Tic disorder, unspecified; Z79.899 Other long term (current) drug therapy
CPT/HCPCS: 36415; 80053; 80061; 82306; 82550; 82607; 83735; 84443; 84481; 84550; 85027; 86038; 86039; 86140; 86200; 86431

== ENCOUNTER → 2021-06-20 | Outpatient (CLI) | payer MEDICARE ==
[2021-06-20 13:05] VITALS: BP 185/93; PULSE 76; RESP 18; TEMP 98
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
== END | disposition home or self-care (01) ==
LOC: PNWHC3 12:05
PROVIDERS: ATTEND Specialist
DX: M51.36 Other intervertebral disc degeneration, lumbar region (principal)
CPT/HCPCS: 99211

== ENCOUNTER → 2021-06-25 | Outpatient (CLI) | payer MEDICARE | END | disposition home or self-care (01) | LOC: LABWHC1 12:24 | PROVIDERS: ATTEND Physician Assistant | DX: R94.4 Abnormal results of kidney function studies (principal) | CPT/HCPCS: 36415; 84165; 86334 ==

== ENCOUNTER → 2021-07-26 | Day surgery (SDC) | payer MEDICARE ==
[2021-07-25 09:59] VITALS: BMI 27.3
[~2021-07-26] MED LIST changes: -HYDROmorphone 0.5 MG/0.5 ML SYRINGE IVP PRN; +IOPAMIDOL M200 10 ML VIAL ONE; +LIDOCAINE 1% (10MG/ML) FOR IV START INTRADERMA PRN; -MIDAZOLAM (PF) 2 MG/2 ML VIAL IV PRN; -ONDANSETRON 4 MG/2 ML VIAL IVP ONE; -Pre Op ABX Message 1 EACH MISC MISCELLANE ONE; +methylPREDNISolone ACETATE 80 MG/ML 1 ML VIAL ONE
[2021-07-26 13:18] VITALS: RESP 18; TEMP 98
--- NOTE | 2021-07-26 13:52 | P.PCN ---
Date of Procedure: 07/26/21 Procedure(s) Performed: PREOPERATIVE DIAGNOSIS: 1- Lumbar Degenerative Disc Diseases 2-Lumbar spondylosis with Facet arthropathy without myelopathy POSTOPERATIVE DIAGNOSIS: Same as preop diagnosis. PROCEDURE 1. Lumbar epidural steroid injection under fluoroscopic guidance at the L1-2 level. (Fluoroscopy imaging was available in radiology department) 2. Lumbar epidurogram. ANESTHESIA: Local with 1% lidocaine 3 ml . EBL: Minimal PROCEDURE INDICATION: The patient with low back pain and radiculitis symptoms unresponsive to conservative treatment. Fluoroscopy was used to optimize visualization of the needle placement and to maximize safety. PROCEDURE DESCRIPTION / TECHNIQUE: The patient was seen and identified in the preoperative area. Risks, benefits, complications including but not limited to infections ,bleeding ,allergic reaction to the medications ,nerve damage and not complete pain releife , and alternatives were discussed with the patient. The patient agreed to proceed with the procedure and signed the consent. IV was started, and vital signs were s table. Patient was taken to the OR and time out was completed. The patient was placed in the prone position on procedure table and a pillow was placed under the abdomen to reduce lumbar lordosis. The lumbosacral area was prepped and draped in the usual sterile fashion.ere closely monitored during the procedure. Vital signs was monitered during the entire procedure. Using anterior-posterior fluoroscopy, the L1-2 interlaminar space was identified and the skin over this site was marked and then infiltrated with 1% lidocaine subcutaneously. Subsequently, a 20-gauge Tuohy epidural needle was inserted and advanced toward the epidural space using the ``Loss of resistance technique and guided by AP and lateral fluoroscopy. The correct needle position in the epidural space was verified with the injection of 2 mL of the water soluble contrast dye Isovue 200 contrast and observing an excellent epidurogram with the epidural spread of the dye, after negative aspiration for blood and CSF and in the absence of paresthesias. Again after negative aspiration, a 6 ml mixture containing 60 mg of Depo-medrol , and 2 ml of preservative free Normal Saline, and 2 ml of preservative free lidocaine 1% solution was injected and a washout of epidurogram was seen. Needle was withdrawn intact, skin was cleansed, and bandages were applied. COMPLICATIONS: None DISPOSITION / PLANS: The patient was placed in a supine position and transferred to the recovery area in a stable condition for observation. There was no evidence of lower extremity motor or sensory deficit after the procedure. Patient was discharged from the recovery room after meeting discharge criteria. Home discharge instructions were given to the patient by the staff. The patient was reexamined prior to discharge. The patient will schedule a follow up in the clinic in 2-4 weeks.
--- NOTE | 2021-07-26 14:03 | FL ---
Fluoroscopy INDICATION: Pain FINDINGS: Fluoroscopy time: 2 seconds. Images obtained: 1. IMPRESSIONS: 1. Documentation of fluoroscopy.
[2021-07-26 14:13] VITALS: BP 162/75; PULSE 78
== END ==
LOC: ORPAIN 12:04
PROVIDERS: ATTEND Specialist
DX: M51.16 Intervertebral disc disorders with radiculopathy, lumbar region (principal); M47.26 Other spondylosis with radiculopathy, lumbar region; Z88.2 Allergy status to sulfonamides
CPT/HCPCS: 62323; J1040; Q9966

== ENCOUNTER → 2021-08-15 | Outpatient (CLI) | payer MEDICARE ==
[2021-08-15 11:47] VITALS: BP 118/79; PULSE 80; RESP 18; TEMP 97.9
--- NOTE | 2021-08-15 12:01 | P.PAINPG ---
Objective - Vital Signs Vital signs: Vital Signs Temp 97.9 F 08/15/21 11:36 Pulse 80 08/15/21 11:36 Resp 18 08/15/21 11:36 BP 118/79 08/15/21 11:36 Pulse Ox 95 08/15/21 11:36 FiO2 Intake & Output 08/14/21 08/15/21 08/15/21 18:59 06:59 18:59 Weight 65.771 kg PQRS Measure Charge Sheet Mode of Arrival: Ambulatory Comment: A 75 yr old female with a history of severe and chronic low back pain secondary to lumbar degenerative disc diseases and lumbar spondylosis with facet arthropathy presents today for evaluation s/p LESI L1-L2. She experienced 50% pain relief s/p procedure. Pain level is 7/10 in intensity, intermittent, tingling/shooting pain with bending & lifting. Has had this pain for years. Pain is alleviated with PT in Mar 2021 which didn't relieve pain, heat, medications (Tramadol), topicals, sitting, repositioning and rest. Interventional pain procedures completed include LESI L1-L2 Patient is currently on Tramadol prn Patient denies any side effects of the medication(s), denies excessive drowsiness or sleepiness, denies suicidal ideation and reports that the current pain medication is helping to control the pain and improve activities of daily living. Patient denies any motor or sensory deficits. Patient denies any fever or night sweats, denies any change in the bowel movements or urination. Physical Examination: -Constitutional: Cooperative. Not in acute distress . - Neurologic: Cranial nerve II to XII intact. No focal neurological deficits. - Psychatric: Alert & oriented x 3. Matching mood & appropriate affect. Judgment and insight intact. - Musculoskeletal: Cervical spine: Muscle bulk/ tone/ strength in the bilateral upper extremities normal Vertebral body tenderness to palpation over Spurling test positive Distraction test positive Facet loading test positive Thoracic spine Muscle bulk / tone/ strength in the bilateral paraspinal muscles normal Vertebral body tender to palpation over Facet loading test positive Lumbar spine: Motor bulk/ tone/ strength lower extremities , thigh and legs : 5/5 Deep tendon reflexes : Normal Knee Jerk. Normal Ankle Jerk . Vertebral body tenderness to palpation over L1, L2 Lumbar Facet Loading Test positive Straight Leg Raise: positive at 30 degrees right side/ left side Gaenslen's Test positive Sacral spine : Severe tenderness over the Sacroiliac joint: right side / left side Range of motion: Flexion of the lumbar spine <60 degrees Range of motion: Extension of the lumbar spine <20 degrees Gaenslen's Test positive Abdulaziz's Test positive Zenon test: positive right side / left side Thigh Thrust Test Sacral Thrust Test Assessment and plan: Chronic low back pain secondary to lumbar degenerative disc disease , lumbar spondylosis with facet arthropathy without myelopathy Recommendation of LESI L1-L2 #2. May need a series of injections, up to 3 within a 6 mo time frame, for optimal pain relief. Risks, benefits of procedure discussed and pt verbalized understanding. Denies anticoagulant use or medical history of diabetes. All patient questions answered MAPS reviewed and it was appropriate. I have spent less than 30 minutes on patient care today. Dr Michael was available by phone for the evaluation of this patient. The time was used to review the medical records including relevant urine studies and Prescription history (MAPs), review of the available imaging, evaluation and examination of the patient, coordination of care with the medical staff and if applicable referring physicians, as well as creation of the medical record - Pain Location Bilateral Lower Back Non-Pharmacological Interventions: Heat, Sitting Pharmacological Interventions: Epidural, Scheduled Medication, Topical Medication PQRS Narrative: Smoking Status Never smoker Blood Pressure 118/79 Pain Intensity [Bilateral 7 Lower Back] Scale Used Numeric (1 - 10) Hx Alcohol Use (MH) Yes: RARELY Home Medications: Ambulatory Orders Brimonidine Tartrate [Alphagan P 0.2% Ophth Soln] 1 drop BOTH EYES BID 06/02/18 Calcium Carbonate [Calcium] 600 mg PO DAILY 06/02/18 Cyanocobalamin (Vitamin B-12) [Vitamin B-12] 1,000 mcg PO DAILY 06/02/18 Esomeprazole Magnesium [NexIUM] 20 mg PO BID 06/02/18 Fexofenadine HCl [Danuta Allergy] 180 mg PO DAILY 06/02/18 Gabapentin [Neurontin] 300 mg PO BID 06/02/18 Montelukast [Singulair] 10 mg PO DAILY 06/02/18 Multivitamins, Thera [Multivitamin (formulary)] 1 tab PO DAILY 06/02/18 Nabumetone [Relafen] 750 mg PO BID 06/02/18 Pravastatin Sodium [Pravachol] 20 mg PO DAILY 06/02/18 buPROPion [Wellbutrin] 75 mg PO DAILY 06/02/18 traMADol HCL [Ultram] 50 mg PO Q6HR PRN 06/02/18 Dorzolamide 2% [Trusopt 2%] 1 drops BOTH EYES BID 07/25/21 Magnesium Carb,Citrate,Oxide [Magnesium Complex] 300 mg PO HS 07/25/21 Controlled Substance Measures - Controlled Substance Measures Is patient prescribed a controlled substance at discharge?: No
== END | disposition home or self-care (01) ==
LOC: PNWHC3 10:22
PROVIDERS: ATTEND Specialist
DX: M47.896 Other spondylosis, lumbar region (principal); M51.36 Other intervertebral disc degeneration, lumbar region
CPT/HCPCS: 99211

== ENCOUNTER → 2021-08-15 | Outpatient (CLI) | payer MEDICARE ==
[2021-08-15 19:11] LABS: DNA Double-Stranded POSITIVE (NEGATIVE)
== END | disposition home or self-care (01) ==
LOC: LABWHC1 12:15
PROVIDERS: ATTEND Family Medicine
DX: N18.4 Chronic kidney disease, stage 4 (severe) (principal); L92.0 Granuloma annulare; Z84.0 Family history of diseases of the skin and subcutaneous tissue
CPT/HCPCS: 36415; 86225

== ENCOUNTER → 2021-09-13 | Outpatient (CLI) | payer MEDICARE ==
[2021-09-13 11:13] VITALS: BP 161/81; PULSE 85; RESP 18; TEMP 98.7
--- NOTE | 2021-09-13 14:35 | P.PAINPG ---
PQRS Measure Charge Sheet Comment: A 75 yr old female with a history of severe and chronic low back pain secondary to lumbar degenerative disc diseases and lumbar spondylosis with facet arthropathy presents today for evaluation s/p LESI L1-L2. She states she had 50% pain relief x 1 week s/p procedure. Pain level is currently at 8/10 in inten sity, localized in the lumbar spine without radiation of pain. Pain is dull/ achy in character. Pain is provoked by standing/ walking/ lifting for periods of 15 min or more. Pain is alleviated with medications (Neurontin, tramadol, Relafen), topicals, LESIs in the past, heat, physical therapy for 6 weeks in February 2021, home exercise regimen, sitting and rest. Interventional pain procedures completed include LESIs in the past Patient is currently on Tramadol, Neurontin, Relafen Patient denies any side effects of the medication(s), denies excessive drowsiness or sleepiness, denies suicidal ideation and reports that the current pain medication is helping to control the pain and improve activities of daily living. Patient denies any motor or sensory deficits. Patient denies any fever or night sweats, denies any change in the bowel movements or urination. Physical Examination: -Constitutional: Cooperative. Not in acute distress . - Neurologic: Cranial nerve II to XII intact. No focal neurological deficits. - Psychatric: Alert & oriented x 3. Matching mood & appropriate affect. Judgment and insight intact. - Musculoskeletal: Cervical spine: Muscle bulk/ tone/ strength in the bilateral upper extremities normal Vertebral body tenderness to palpation over Spurling test positive Distraction test positive Facet loading test positive Thoracic spine Muscle bulk / tone/ strength in the bilateral paraspinal muscles normal Vertebral body tender to palpation over Facet loading test positive Lumbar spine: Motor bulk/ tone/ strength lower extremities , thigh and legs : 5/5 Deep tendon reflexes : Normal Knee Jerk. Normal Ankle Jerk . Vertebral body tenderness to palpation over L2 Lumbar Facet Loading Test positive Straight Leg Raise: positive at 30 degrees right side/ left side Gaenslen's Test positive Sacral spine : Severe tenderness over the Sacroiliac joint: right side / left side Range of motion: Flexion of the lumbar spine <60 degrees Range of motion: Extension of the lumbar spine <20 degrees Gaenslen's Test positive Abdulaziz's Test positive Zenon test: positive right side / left side Thigh Thrust Test Sacral Thrust Test Assessment and plan: Chronic low back pain secondary to lumbar degenerative disc disease , lumbar spondylosis with facet arthropathy without myelopathy Pt is not a candidate for additional LESIs. Also, she stated she had RFA w Dr Mortensen at [facility] with limited relief. She will follow up with Dr Snowden for further exploration of her treatment options. Risks, benefits of procedure discussed and pt verbalized understanding. Denies anticoagulant use or medical history of diabetes. All patient questions answered MAPS reviewed and it was appropriate. I have spent less than 30 minutes on patient care today. Dr Michael was available by phone for the evaluation of this patient. The time was used to review the medical records including relevant urine studies and Prescription history (MAPs), review of the available imaging, evaluation and examination of the patient, coordination of care with the medical staff and if applicable referring physicians, as well as creation of the medical record - Pain Location Bilateral Lower Back Non-Pharmacological Interventions: Chiropractic Treatment, Heat, Inactivity, Massage, Physical Therapy, Position/Reposition, Relaxation Technique, Sitting Pharmacological Interventions: Epidural, Scheduled Medication, Topical Medication PQRS Narrative: Smoking Status Never smoker Hx Alcohol Use (MH) Yes: RARELY Home Medications: Ambulatory Orders Brimonidine Tartrate [Alphagan P 0.2% Ophth Soln] 1 drop BOTH EYES BID 06/02/18 Calcium Carbonate [Calcium] 600 mg PO DAILY 06/02/18 Cyanocobalamin (Vitamin B-12) [Vitamin B-12] 1,000 mcg PO DAILY 06/02/18 Esomeprazole Magnesium [NexIUM] 20 mg PO BID 06/02/18 Fexofenadine HCl [Danuta Allergy] 180 mg PO DAILY 06/02/18 Gabapentin [Neurontin] 300 mg PO BID 06/02/18 Montelukast [Singulair] 10 mg PO DAILY 06/02/18 Multivitamins, Thera [Multivitamin (formulary)] 1 tab PO DAILY 06/02/18 Nabumetone [Relafen] 750 mg PO BID 06/02/18 Pravastatin Sodium [Pravachol] 20 mg PO DAILY 06/02/18 buPROPion [Wellbutrin] 75 mg PO DAILY 06/02/18 traMADol HCL [Ultram] 50 mg PO Q6HR PRN 06/02/18 Dorzolamide 2% [Trusopt 2%] 1 drops BOTH EYES BID 07/25/21 Magnesium Carb,Citrate,Oxide [Magnesium Complex] 300 mg PO HS 07/25/21 Controlled Substance Measures - Controlled Substance Measures Is patient prescribed a controlled substance at discharge?: No
== END | disposition home or self-care (01) ==
LOC: PNWHC3 10:44
PROVIDERS: ATTEND Anesthesiology
DX: M47.896 Other spondylosis, lumbar region (principal); M51.36 Other intervertebral disc degeneration, lumbar region
CPT/HCPCS: 99211

== ENCOUNTER → 2021-11-08 | Outpatient (CLI) | payer MEDICARE ==
[2021-11-08 12:08] VITALS: BP 169/78; PULSE 78; RESP 18; TEMP 98.3
--- NOTE | 2021-11-08 14:52 | P.PAINPG ---
PQRS Measure Charge Sheet Comment: A 75 yr old female with a history of severe and chronic low back pain secondary to lumbar degenerative disc diseases and lumbar spondylosis with facet arthropathy without myelopathy presents today for LBP evaluation. Pain level is currently at /10 in intensity, constant, di2ftyatvy in lower lumbar psine, s harp in character w shooting towards the BLEs. Pain is provoked by walking/standing on tip toes. Pain is alleviated with PT x 6 wks in Feb, massage integrated w PT, heat, meds (Tramadol), heating pad, home exercise regimen, repositioning and rest. Interventional pain procedures completed include FREDRICK L1-L2 x2, Thoracic RFA w limited relief. Patient is currently on Tramadol Patient denies any side effects of the medication(s), denies excessive drowsiness or sleepiness, denies suicidal ideation and reports that the current pain medication is helping to control the pain and improve activities of daily living. Patient denies any motor or sensory deficits. Patient denies any fever or night sweats, denies any change in the bowel movements or urination. Physical Examination: -Constitutional: Cooperative. Not in acute distress . - Neurologic: Cranial nerve II to XII intact. No focal neurological deficits. - Psychatric: Alert & oriented x 3. Matching mood & appropriate affect. Judgment and insight intact. - Musculoskeletal: Cervical spine: Muscle bulk/ tone/ strength in the bilateral upper extremities normal Vertebral body tenderness to palpation over Spurling test positive Distraction test positive Facet loading test positive Thoracic spine Muscle bulk / tone/ strength in the bilateral paraspinal muscles normal Vertebral body tender to palpation over Facet loading test positive Lumbar spine: Motor bulk/ tone/ strength lower extremities , thigh and legs : 5/5 Deep tendon reflexes : Normal Knee Jerk. Normal Ankle Jerk . Vertebral body tenderness to palpation over Lumbar Facet Loading Test positive w TTP over BL L4-L5, L5-S1 facets Straight Leg Raise: positive at 30 degrees right side/ left side Gaenslen's Test positive Sacral spine : Severe tenderness over the Sacroiliac joint: right side / left side Range of motion: Flexion of the lumbar spine <60 degrees Range of motion: Extension of the lumbar spine <20 degrees Gaenslen's Test positive Abdulaziz's Test positive Zenon test: positive right side / left side Thigh Thrust Test Sacral Thrust Test Assessment and plan: Chronic low back pain secondary to lumbar degenerative disc disease , lumbar spondylosis with facet arthropathy without myelopathy Recommendation of BL MBB L4-L5, L5-S1 #1. May need a series of injections, up until RFA, for optimal pain relief. Risks, benefits of procedure discussed and pt verbalized understanding. Denies anticoagulant use or medical history of diabetes. All patient questions answered MAPS reviewed and it was appropriate. I have spent less than 30 minutes on patient care today. Dr Michael was available by phone for the evaluation of this patient. The time was used to review the medical records including relevant urine studies and Prescription history (MAPs), review of the available imaging, evaluation and examination of the patient, coordination of care with the medical staff and if applicable referring physicians, as well as creation of the medical record PQRS Narrative: Smoking Status Never smoker Hx Alcohol Use (MH) Yes: RARELY Home Medications: Ambulatory Orders Brimonidine Tartrate [Alphagan P 0.2% Ophth Soln] 1 drop BOTH EYES BID 06/02/18 Calcium Carbonate [Calcium] 600 mg PO DAILY 06/02/18 Cyanocobalamin (Vitamin B-12) [Vitamin B-12] 1,000 mcg PO DAILY 06/02/18 Esomeprazole Magnesium [NexIUM] 20 mg PO BID 06/02/18 Fexofenadine HCl [Danuta Allergy] 180 mg PO DAILY 06/02/18 Gabapentin [Neurontin] 300 mg PO BID 06/02/18 Montelukast [Singulair] 10 mg PO DAILY 06/02/18 Multivitamins, Thera [Multivitamin (formulary)] 1 tab PO DAILY 06/02/18 Nabumetone [Relafen] 750 mg PO BID 06/02/18 Pravastatin Sodium [Pravachol] 20 mg PO DAILY 06/02/18 buPROPion [Wellbutrin] 75 mg PO DAILY 06/02/18 traMADol HCL [Ultram] 50 mg PO Q6HR PRN 06/02/18 Dorzolamide 2% [Trusopt 2%] 1 drops BOTH EYES BID 07/25/21 Magnesium Carb,Citrate,Oxide [Magnesium Complex] 300 mg PO HS 07/25/21 Controlled Substance Measures - Controlled Substance Measures Is patient prescribed a controlled substance at discharge?: No
== END | disposition home or self-care (01) ==
LOC: PNWHC3 10:49
PROVIDERS: ATTEND Specialist
DX: M47.896 Other spondylosis, lumbar region (principal); M51.36 Other intervertebral disc degeneration, lumbar region
CPT/HCPCS: 99211

== ENCOUNTER → 2021-11-21 | Outpatient (CLI) | payer MEDICARE ==
--- NOTE | 2021-11-22 07:35 | US ---
EXAMINATION TYPE: US kidneys/renal and bladder DATE OF EXAM: 11/21/2021 COMPARISON: NONE CLINICAL HISTORY: N17.9 ACUTE KIDNEY FAILURE. Abnormal labs. No pain. EXAM MEASUREMENTS: Right Kidney: 9.7 x 3.9 x 3.8 cm Left Kidney: 8.5 x 4.7 x 5.2 cm Right Kidney: Medial anechoic lesion at hilum = 1.0 x 0.7 cm . No hydronephrosis or shadowing calcu li. Left Kidney: No hydronephrosis or masses seen. No shadowing calculi. Bladder: distended, anechoic Left Jet seen IMPRESSION: 1. No obstructive uropathy or shadowing renal calculi. 2. Right renal cyst.
== END | disposition home or self-care (01) ==
LOC: RADUSWWP 16:25
PROVIDERS: ATTEND Internal Medicine Nephrology
DX: N17.9 Acute kidney failure, unspecified (principal); N28.1 Cyst of kidney, acquired
CPT/HCPCS: 76770

== ENCOUNTER 2021-11-23 07:31 | Day surgery (SDC) | payer MEDICARE ==
[~2021-11-23 07:31] MED LIST changes: -IOPAMIDOL M200 10 ML VIAL ONE; -methylPREDNISolone ACETATE 80 MG/ML 1 ML VIAL ONE
[2021-11-23] MEDS ORDERED: LIDOCAINE 1% (10MG/ML) FOR IV START INTRADERMA ONE (07:51)
[2021-11-23] MEDS ORDERED: SODIUM CHLORIDE 0.9% 1,000 ML IV ONE (07:51)
[2021-11-23 07:56] VITALS: TEMP 96.9
[2021-11-23] MEDS ORDERED: fentaNYL (PF) 50 MCG/ML 2 ML AMP ONE (08:04)
[2021-11-23] MEDS ORDERED: TRIAMCINOLONE ACETONIDE 40 MG/ML 1 ML VIAL ONE (08:04)
[2021-11-23] MEDS ORDERED: ROPIVACAINE 5 MG/ML 20 ML AMPULE ONE (08:04)
[2021-11-23] MEDS ORDERED: MIDAZOLAM 2 MG/2 ML VIAL ONE (08:04)
--- NOTE | 2021-11-23 08:22 | P.PCN ---
Date of Procedure: 11/23/21 Description of Procedure: Pre- and Post-operative Diagnosis: Lumbar facet arthropathy, and lumbar spon dylosis without myelopathy. Procedure: #1 Diagnostic Medial Branch Block at bilateral Lumbar 4/5 and #1 diagnostic dorsal ramus block at Lumbar 5/ sacral ala levels (total 4 levels) Surgeon: Jennifer Flores Anesthesia: Local: 1% Lidocaine, IV sedation : Versed 2 mg and fentanyl 100 g. Complications: None EBL: None Specimen removed: None Fluoroscopic image: Saved to patient electronic medical records. Indications for Procedure: The patient is well known to pain clinic for his chronic low back pain management. The lumbar facet loading test was positive with a clinical diagnosis of lumbar facet arthropathy. Failed with conservative therapy. Came here for interventional help for better pain relief. Procedure and Findings: The patient was seen and examined. The written informed consent was obtained after explaining the risks, benefits and alternatives of the procedure to the patient. The patient was brought to the procedure room and was placed in the prone position on the operating table table. A pillow was placed under the abdomen to reduce lumbar lordosis. Standard anesthesia monitoring was done through out the procedure. The skin preparation was done with ChloraPrep, and draping was done in usual sterile fashion. Sterile technique was observed throughout the procedure. Under fluoroscopic guidance, right the Lumbar 4, 5 and Sacral ala levels were identified in the AP view. For lumbar L4, and L5 levels the targeting area of superior articular process, and close to the most medial and superior aspect of transverse process identified, marked. 1ml of 1% Lidocaine was used with a 25 gauge needle to achieve adequate local anesthesia of the skin and subcutaneous tissue at each level. A 22 gauge 3.5 inch spinal needle was placed and advanced targeting area which was close to the most medial and superior aspect of the transverse process. For Lumbar 5/ sacral ala level, fluoroscope was used in the anteroposterior view, and the needle tip was placed at the superior and most medial part of sacral ala close to the superior articular process. A bony contact was obtained and needle tip position was confirmed at anteroposterior view. No paresthesia was noted. A negative aspiration was confirmed. 1 ml solution per level was injected, the block solution containing 5 ml of 0.5% ropivacaine preservative-free solution mixed with 40 MG of Kenalog. The needles were removed intact. Entire procedure repeated on the left side. Lumbar area was cleaned and bandages were applied. Disposition : The patient tolerated the procedure very well. The patient was transferred to the recovery room and remained stable until discharged home. The patient was given detailed discharge instructions for infection, bleeding, and increased pain at the injection site, and was advised to seek immediate medical attention should significant side effects develop. The patient will be scheduled with Pain Clinic within 4 weeks for repeat procedure if it's helpful.
[2021-11-23] MEDS ORDERED: IV FLUID CONTINUATION 1,000 ML IV ONE (08:26)
[2021-11-23 08:39] VITALS: RESP 16
[2021-11-23 08:46] VITALS: BP 149/80; PULSE 71
--- NOTE | 2021-11-23 09:51 | FL ---
Fluoroscopy INDICATION: Pain FINDINGS: Fluoroscopy time: 7 seconds. Images obtained: 5. IMPRESSIONS: 1. Documentation of fluoroscopy.
== END 2021-11-23 08:56 | disposition home or self-care (01) ==
LOC: ORPAIN 07:31
DX: M47.816 Spondylosis without myelopathy or radiculopathy, lumbar region (principal); F32.A Depression, unspecified; M79.7 Fibromyalgia; H40.9 Unspecified glaucoma; K58.9 Irritable bowel syndrome, unspecified; N28.9 Disorder of kidney and ureter, unspecified; Z79.899 Other long term (current) drug therapy
CPT/HCPCS: 64493; 64494; J2250; J3301; J3010; J2795

== ENCOUNTER → 2021-12-06 | Outpatient (CLI) | payer MEDICARE ==
[2021-12-06 10:50] VITALS: BP 142/69; PULSE 85; RESP 18
--- NOTE | 2021-12-06 13:02 | P.PAINPG ---
PQRS Measure Charge Sheet Comment: A 76 yr old female with a history of severe and chronic low back pain secondary to lumbar degenerative disc diseases and lumbar spondylosis with facet arthropathy without myelopathy presents today for evaluation s/p BL MBB L4-L5, L5-S1. 75% x 1 day Pain level is currently at 5/10 in intensity, constant, lo calized in lower lumbar spine, dull/ achy in character w shooting towards BLEs, L>R. Pain is provoked as high as 8/10 by twisting. Pain is alleviated with PT integrated w massage in Feb 2021, home exercise regimen, heat, medications (Neurontin, Tramadol), topicals, repositioning and rest. Interventional pain procedures completed include BL MBB L3-L5 x1 Patient is currently on Tramadol, Neurontin Patient denies any side effects of the medication(s), denies excessive drowsiness or sleepiness, denies suicidal ideation and reports that the current pain medication is helping to control the pain and improve activities of daily living. Patient denies any motor or sensory deficits. Patient denies any fever or night sweats, denies any change in the bowel movements or urination. Physical Examination: -Constitutional: Cooperative. Not in acute distress . - Neurologic: Cranial nerve II to XII intact. No focal neurological deficits. - Psychatric: Alert & oriented x 3. Matching mood & appropriate affect. Judgment and insight intact. - Musculoskeletal: Cervical spine: Muscle bulk/ tone/ strength in the bilateral upper extremities normal Vertebral body tenderness to palpation over Spurling test positive Distraction test positive Facet loading test positive Thoracic spine Muscle bulk / tone/ strength in the bilateral paraspinal muscles normal Vertebral body tender to palpation over Facet loading test positive Lumbar spine: Motor bulk/ tone/ strength lower extremities , thigh and legs : 5/5 Deep tendon reflexes : Normal Knee Jerk. Normal Ankle Jerk . Vertebral body tenderness to palpation over Lumbar Facet Loading Test positive w lateral flexion L>R. Palpable TTP over BL L4-L5, L5-S1 facets. Straight Leg Raise: positive at 30 degrees right side/ left side Gaenslen's Test positive Sacral spine : Severe tenderness over the Sacroiliac joint: right side / left side Range of motion: Flexion of the lumbar spine <60 degrees Range of motion: Extension of the lumbar spine <20 degrees Gaenslen's Test positive Abdulaziz's Test positive Zenon test: positive right side / left side Thigh Thrust Test Sacral Thrust Test Assessment and plan: Chronic low back pain secondary to lumbar degenerative disc disease , lumbar spondylosis with facet arthropathy without myelopathy Recommendation of BL MBB L4-L5, L5-S1 #2. May need a series of injections, up until RFA, for optimal pain relief. Risks, benefits of procedure discussed and pt verbalized understanding. Denies anticoagulant use or medical history of diabetes. All patient questions answered I have spent less than 30 minutes on patient care today. Dr Michael was available by phone for the evaluation of this patient. The time was used to review the medical records including relevant urine studies and Prescription history (MAPs), review of the available imaging, evaluation and examination of the patient, coordination of care with the medical staff and if applicable referring physicians, as well as creation of the medical record - Pain Location Lower Back Non-Pharmacological Interventions: Heat, Home Exercise, Inactivity, Massage, Physical Therapy, Position/Reposition, Stretching Pharmacological Interventions: Block, Epidural, PRN Medication, Scheduled Medication, Topical Medication PQRS Narrative: Smoking Status Never smoker Hx Alcohol Use (MH) Yes: RARELY Home Medications: Ambulatory Orders Brimonidine Tartrate [Alphagan P 0.2% Ophth Soln] 1 drop BOTH EYES BID 06/02/18 Calcium Carbonate [Calcium] 600 mg PO DAILY 06/02/18 Esomeprazole Magnesium [NexIUM] 20 mg PO BID 06/02/18 Fexofenadine HCl [Danuta Allergy] 180 mg PO DAILY 06/02/18 Gabapentin [Neurontin] 300 mg PO BID 06/02/18 Montelukast [Singulair] 10 mg PO DAILY 06/02/18 Multivitamins, Thera [Multivitamin (formulary)] 1 tab PO DAILY 06/02/18 Nabumetone [Relafen] 750 mg PO BID 06/02/18 Pravastatin Sodium [Pravachol] 20 mg PO DAILY 06/02/18 buPROPion [Wellbutrin] 75 mg PO DAILY 06/02/18 traMADol HCL [Ultram] 50 mg PO Q6HR PRN 06/02/18 Dorzolamide 2% [Trusopt 2%] 1 drops BOTH EYES BID 07/25/21 Magnesium Carb,Citrate,Oxide [Magnesium Complex] 400 mg PO HS 07/25/21 Controlled Substance Measures - Controlled Substance Measures Is patient prescribed a controlled substance at discharge?: No
== END | disposition home or self-care (01) ==
LOC: PNWHC3 10:24
PROVIDERS: ATTEND Specialist
DX: M47.896 Other spondylosis, lumbar region (principal); M51.36 Other intervertebral disc degeneration, lumbar region
CPT/HCPCS: 99211

== ENCOUNTER 2021-12-28 11:43 | Day surgery (SDC) | payer MEDICARE ==
[2021-12-28 12:22] VITALS: RESP 16; TEMP 97.1
[2021-12-28 12:25] LABS: Glucose,Whole Blood 102 mg/dL (70-110)
[2021-12-28] MEDS ORDERED: MIDAZOLAM 2 MG/2 ML VIAL ONE (13:05)
[2021-12-28] MEDS ORDERED: ROPIVACAINE 5 MG/ML 20 ML AMPULE ONE (13:05)
[2021-12-28] MEDS ORDERED: fentaNYL (PF) 50 MCG/ML 2 ML AMP ONE (13:05)
[2021-12-28] MEDS ORDERED: methylPREDNISolone ACETATE 40 MG/ML 1 ML VIAL ONE (13:05)
--- NOTE | 2021-12-28 13:25 | P.PCN ---
Date of Procedure: 12/28/21 Procedure(s) Performed: PREOPERATIVE DIAGNOSIS : 1- Lumbar spondylosis with Facet Arthropathy without myelopathy . 2- Lumber degenerative disc disease POSTOPERATIVE DIAGNOSIS: 1- Lumbar spondylosis with Facet Arthropathy without myelopathy . 2- Lumber degenerative disc disease PROCEDURE: Diagnostic bilateral L3 , L4 , and L5 medial branch block under fluoroscopy guidance(fluoroscopy images available in the radiology Department ) ( To target the facet joint between Bilateral L4-5 , and L5-S1 )# 2nd ANESTHESIA:, Monitored anesthesia care as per anesthesia department. EBL: Minimal COMPLICATION: None PROCEDURE INDICATION: Chronic low back pain secondary to Facet arthropathy unresponsive to conservative treatment. PROCEDURE DESCRIPTION: the patient was seen and identified in the preop holding area , risks and benefits and possible complications of the procedure and alternative were discussed with the patient, and the patient agreed to proceed with the procedure and signed the consent and vital signs monitored during the procedure and fluoroscopy was used to maximize the benefit and accuracy of the needle placement, and sedation was given to decrease patient an xiety, patient was taken to the procedure room and placed in prone position vital signs monitored in the back prepped with chlorhexidine X3 then under strict sterile technique using a right oblique fluoroscopy ,the junction of the transverse process and the superior articulating process of the right L3 , L4 , and L5 vertebra which corresponding to the fluoroscopy image of the eye of the Boby dog on the block side for the medial branches and subsequently , after local infiltration of skin and subcu tissuies with Ropivacaine 0.5 % , one mL at each level ,then 22-gauge Quincke-type needles , 3 needle was used , each one of them placed at the junction of the base of the transverse process and the superior articular process at the appropriate level, and the needle was advanced until the periosteum contacted, needle placement confirmed with AP oblique and lateral view and after appropriate needle placement confirmed, and after negative aspiration for heme and CSF and there was no paresthesia 1-1/2 mL of Ropivacaine 0.5% mixed with (10) mg Depo-Medrol , then half mL injected at each level after negative aspiration the needle subsequently removed and the same procedure repeated for the left side at left side at L3 , L4 and L5 levels. At the end of the procedure and the needles removed and a bandage applied after the skin was cleaned the cleaning solution patient taken to recovery room in stable condition and monitors in the recovery room for 20-30 minutes and discharged home in stable condition after discharge criteria met and patient will follow up with the pain clinic in 2-4 weeks
[2021-12-28] MEDS ORDERED: IV FLUID CONTINUATION 1,000 ML IV ONE (13:27)
[2021-12-28 13:50] VITALS: BP 151/74; PULSE 76
--- NOTE | 2021-12-28 14:03 | FL ---
Intraoperative/procedural fluoroscopic services were provided. Total fluoroscopy time is 25 seconds w ith a total of 0 submitted images to PACS. Please see the operative/procedural note for further detai ls.
== END 2021-12-28 14:08 | disposition home or self-care (01) ==
LOC: ORPAIN 11:43
PROVIDERS: ATTEND Specialist
DX: M47.816 Spondylosis without myelopathy or radiculopathy, lumbar region (principal); M51.36 Other intervertebral disc degeneration, lumbar region; G89.29 Other chronic pain
CPT/HCPCS: 64493; 64494 ×2; J2250; J1030; J3010; J2795

== ENCOUNTER → 2022-01-17 | Outpatient (CLI) | payer MEDICARE ==
[2022-01-17 14:16] VITALS: BP 179/75; PULSE 85; RESP 16; TEMP 97.9
--- NOTE | 2022-01-17 14:24 | P.PAINPG ---
PQRS Measure Charge Sheet Comment: A 76 yr old female with a history of severe and chronic low back pain secondary to lumbar DDD and spondylosis with facet arthropathy without myelopathy presents today for evaluation s/p BL facet block fo the medial branches L4-L5, L5-S1 #2. Pt states she experienced 80 % pain relief x 1 day s/p procedure. Pain level is currently at 6-7 /10 in intensity, constant, localized in the lower lumbar spine, throbbing in character w shooting towards the BLEs. Pain is provoked by bending. Pain is alleviated with medications (Neurontin), topicals, PT x 6 wks in Feb 2021, heat, sitting and rest. Interventional pain procedures completed include BL MBB L3-L5 x2 Patient is currently on Neurontin Patient denies any side effects of the medication(s), denies excessive drowsiness or sleepiness, denies suicidal ideation and reports that the current pain medication is helping to control the pain and improve activities of daily living. Patient denies any motor or sensory deficits. Patient denies any fever or night sweats, denies any change in the bowel movements or urination. Physical Examination: -Constitutional: Cooperative. Not in acute distress . - Neurologic: Cranial nerve II to XII intact. No focal neurological deficits. - Psychatric: Alert & oriented x 3. Matching mood & appropriate affect. Judgment and insight intact. - Musculoskeletal: Cervical spine: Muscle bulk/ tone/ strength in the bilateral upper extremities normal Vertebral body tenderness to palpation over Spurling test positive Distraction test positive Facet loading test positive Thoracic spine Muscle bulk / tone/ strength in the bilateral paraspinal muscles normal Vertebral body tender to palpation over Facet loading test positive Lumbar spine: Motor bulk/ tone/ strength lower extremities , thigh and legs : 5/5 Deep tendon reflexes : Normal Knee Jerk. Normal Ankle Jerk . Vertebral body tenderness to palpation over Lumbar Facet Loading Test positive TTP over BL L4-L5, L5-S1 facets Straight Leg Raise: positive at 30 degrees right side/ left side Gaenslen's Test positive Sacral spine : Severe tenderness over the Sacroiliac joint: right side / left side Range of motion: Flexion of the lumbar spine <60 degrees Range of motion: Extension of the lumbar spine <20 degrees Gaenslen's Test positive Zenon test: positive right side / left side Thigh Thrust Test Sacral Thrust Test Assessment and plan: Chronic low back pain secondary to lumbar degenerative disc disease, spondylosis with facet arthropathy without myelopathy Recommendation of BL RFA L4-L5, L5-S1. Pt exhibited sufficient and optimal pain relief w prior facet block of the medial branches. Risks, benefits of procedure discussed and pt verbalized understanding. Denies anticoagulant use or medical history of diabetes. All patient questions answered I have spent less than 30 minutes on patient care today. Dr Michael was available by phone for the evaluation of this patient. The time was used to review the medical records including relevant urine studies and Prescription history (MAPs), review of the available imaging, evaluation and examination of the patient, coordination of care with the medical staff and if applicable referring physicians, as well as creation of the medical record PQRS Narrative: Smoking Status Never smoker Hx Alcohol Use (MH) Yes: RARELY Home Medications: Ambulatory Orders Brimonidine Tartrate [Alphagan P 0.2% Ophth Soln] 1 drop BOTH EYES BID 06/02/18 Calcium Carbonate [Calcium] 600 mg PO DAILY 06/02/18 Esomeprazole Magnesium [NexIUM] 20 mg PO BID 06/02/18 Fexofenadine HCl [Danuta Allergy] 180 mg PO DAILY 06/02/18 Gabapentin [Neurontin] 300 mg PO BID 06/02/18 Montelukast [Singulair] 10 mg PO DAILY 06/02/18 Multivitamins, Thera [Multivitamin (formulary)] 1 tab PO DAILY 06/02/18 Nabumetone [Relafen] 750 mg PO DAILY 06/02/18 Pravastatin Sodium [Pravachol] 20 mg PO DAILY 06/02/18 buPROPion [Wellbutrin] 75 mg PO DAILY 06/02/18 traMADol HCL [Ultram] 50 mg PO Q6HR PRN 06/02/18 Dorzolamide 2% [Trusopt 2%] 1 drops BOTH EYES BID 07/25/21 Magnesium Carb,Citrate,Oxide [Magnesium Complex] 400 mg PO HS 07/25/21 Unk Hair Skin And Nails Suppl 1 cap PO DAILY 12/25/21 Controlled Substance Measures - Controlled Substance Measures Is patient prescribed a controlled substance at discharge?: No
== END ==
LOC: PNWHC3 12:19
PROVIDERS: ATTEND Specialist
DX: M47.816 Spondylosis without myelopathy or radiculopathy, lumbar region (principal); M51.36 Other intervertebral disc degeneration, lumbar region; G89.29 Other chronic pain; Z88.2 Allergy status to sulfonamides; Z91.011 Allergy to milk products
CPT/HCPCS: 99211

== ENCOUNTER 2022-02-22 07:27 | Day surgery (SDC) | payer MEDICARE ==
[2022-02-22] MEDS ORDERED: LACTATED RINGERS 1,000 ML IV SCH (07:45)
[2022-02-22 08:01] VITALS: TEMP 97.3
[2022-02-22] MEDS ORDERED: SODIUM CHLORIDE 0.9% 1,000 ML IV ONE ×2 (08:10)
[2022-02-22] MEDS ORDERED: TRIAMCINOLONE ACETONIDE 40 MG/ML 1 ML VIAL ONE (08:32)
[2022-02-22] MEDS ORDERED: fentaNYL (PF) 50 MCG/ML 2 ML AMP ONE (08:32)
[2022-02-22] MEDS ORDERED: MIDAZOLAM 2 MG/2 ML VIAL ONE (08:32)
[2022-02-22] MEDS ORDERED: LIDOCAINE 4% (PF) 5 ML AMP ONE (08:32)
[2022-02-22] MEDS ORDERED: ROPIVACAINE 5 MG/ML 20 ML AMPULE ONE (08:32)
--- NOTE | 2022-02-22 09:13 | P.PCN ---
Date of Procedure: 02/22/22 Description of Procedure: Procedure(s) Performed: PREOPERATIVE DIAGNOSIS: 1. Lumbar Spondylosis with Facet Arthropathy without myelopathy. 2-. Lumber degenerative disc disease POSTOPERATIVE DIAGNOSIS: 1. Lumbar Spondylosis with Facet Arthropathy without myelopathy. 2-. Lumber degenerative disc disease PROCEDURES: Bilateral Radiofrequency thermocoagulation, L4-L5, and L5-S1 medial branch, with fluoroscopic guidance SURGEON: Mati Patino M.D. ANESTHESIA: Moderate sedation with intravenous versed 2 mg and fentaneyl 100 mcg and local infiltration with lidocaine 1% 10 ml Start: 831 - Stop 913 EBL: Minimal Fluoroscopy image was saved to store to electronic medical record PROCEDURE INDICATION: The patient with low back pain secondary to lumbar facet arthropathy who had more than 50% relief of her pain with previous diagnostic lumbar medial branch block with bupivacaine. PROCEDURE DESCRIPTION / TECHNIQUE: The patient was seen and identified in the preoperative area. Risks, benefits, complications, including but not limited to risk of infection ,bleeding , allergic reactions to the medications and no complete pain releife , and alternatives were discussed with the patient, the patient agreed to proceed with the procedure and signed the consent. IV was started. Vital signs remained stable throughout the procedure. Patient was taken to the OR and time out was completed. The patient was placed in the prone position on the procedure table. The lumber area was prepped and draped in the usual sterile fashion. . Vital signs were closely monitored during the procedure .IV sedation was used during the procedure to decrease patients anxiety. Using AP and then oblique fluoroscopy, the ``eye of the Boby dog corresponding to the connection between the superior and transverse articular processes of L4, and L5 and sacral ala were identified, marked, and localized with 1% lidocaine. Subsequently, a 18 -tp radiofrequency cannula with a 10-mm active tip was advanced guided by fluoroscopy to each of the ``eyes of the Boby dog at Left L4, and L5 and sacral ala. Each site then underwent sensory testing at 50 Hz and 0 to 1 volt and motor testing at 2.5 Hz and 0 to 3 volt with local stimulation, but no radicular symptoms down the legs. Thereafter the L4-5, and L5-S1 sites underwent radiofrequency thermocoagulation at 80 degrees celsius for 90 seconds after injecting 0.5 ml of PF lidocaine 4%. then After the thermocoagulation done , 1 ml of the block solution containing Kenalog 40 mg and 5 ml of ropivacaine 0.5%, 1 ml injected at Left L4-5 , and L5-S1, levels after negative aspiration of CSF and blood and with no paresthesias. Cannulas were retracted while injecting lidocaine 1% until the needle is out. The same procedure was performed on the right side with same result. At the end of the procedure, the skin was cleansed and bandages were applied. COMPLICATIONS: No acute complications. DISPOSITION / PLANS: The patient was placed in a supine position and transferred to the recovery area in a stable condition for observation and was discharged from the recovery room after meeting discharge criteria. Home discharge instructions given to the patient by the staff. The patient was reexamined prior to discharge. The patient will schedule a follow up in the clinic in 2-4 weeks.
[2022-02-22] MEDS ORDERED: IV FLUID CONTINUATION 1,000 ML IV ONE (09:15)
[2022-02-22 09:16] VITALS: RESP 18
--- NOTE | 2022-02-22 09:20 | FL ---
Intraoperative/procedural fluoroscopic services were provided for radiofrequency lumbar facets 3 leve ls. Total fluoroscopy time is 19 seconds with a total of 6 submitted images to PACS. Please see the o perative note for further details.
[2022-02-22 09:32] VITALS: BP 152/77; PULSE 77
== END 2022-02-22 09:56 | disposition home or self-care (01) ==
LOC: ORPAIN 07:27
PROVIDERS: ATTEND Anesthesiology
DX: M47.816 Spondylosis without myelopathy or radiculopathy, lumbar region (principal); M51.36 Other intervertebral disc degeneration, lumbar region; E78.5 Hyperlipidemia, unspecified; J45.909 Unspecified asthma, uncomplicated; F32.A Depression, unspecified; K21.9 Gastro-esophageal reflux disease without esophagitis; Z79.899 Other long term (current) drug therapy; Z88.2 Allergy status to sulfonamides; Z79.51 Long term (current) use of inhaled steroids; Z91.011 Allergy to milk products
CPT/HCPCS: 64635; 64636; J2250; J3301; J3010; J2795

== ENCOUNTER → 2022-03-11 | Outpatient (CLI) | payer MEDICARE ==
[2022-03-11 13:24] VITALS: BP 181/90; PULSE 77; RESP 18; TEMP 97.9
--- NOTE | 2022-03-11 15:47 | P.PAINPG ---
PQRS Measure Charge Sheet Comment: A 76 yr old female with a history of severe and chronic low back pain secondary to lumbar DDD and spondylosis with facet arthropathy without myelopathy presents today for evaluation s/p BL RFA L4-L5, L5-S1. Pt states she experienced 80 % pain relief s/p procedure. Pain level is provoked at 7 /10 in intensity, constant, localized in the lumbar spine, tight in character w shooting towards . Pain is provoked by bending. Pain is alleviated with injections, PT x 4 wks in Feb 2021, massage therapy integrated w PT, chiropractic traetments currently Q 3 wks, heat, meds (Tramadol, Cymbalta), topicals, sitting, repositioning and rest. Interventional pain procedures completed include BL RFA L3-L5 (Feb 2022) Patient is currently on Tramadol, Cymbalta Patient denies any side effects of the medication(s), denies excessive drowsiness or sleepiness, denies suicidal ideation and reports that the current pain medication is helping to control the pain and improve activities of daily living. Patient denies any motor or sensory deficits. Patient denies any fever or night sweats, denies any change in the bowel movements or urination. Physical Examination: -Constitutional: Cooperative. Not in acute distress . - Neurologic: Cranial nerve II to XII intact. No focal neurological deficits. - Psychatric: Alert & oriented x 3. Matching mood & appropriate affect. Judgment and insight intact. - Musculoskeletal: Cervical spine: Muscle bulk/ tone/ strength in the bilateral upper extremities normal Vertebral body tenderness to palpation over Spurling test positive Distraction test positive Facet loading test positive Thoracic spine Muscle bulk / tone/ strength in the bilateral paraspinal muscles normal Vertebral body tender to palpation over Facet loading test positive Lumbar spine: Motor bulk/ tone/ strength lower extremities , thigh and legs : 5/5 Deep tendon reflexes : Normal Knee Jerk. Normal Ankle Jerk . Vertebral body tenderness to palpation over Lumbar Facet Loading Test positive Straight Leg Raise: positive at 30 degrees right side/ left side Gaenslen's Test positive Sacral spine : Severe tenderness over the Sacroiliac joint: right side / left side Range of motion: Flexion of the lumbar spine <60 degrees Range of motion: Extension of the lumbar spine <20 degrees Gaenslen's Test positive Zenon test: positive right side / left side Thigh Thrust Test Sacral Thrust Test Assessment and plan: Chronic low back pain secondary to lumbar degenerative disc disease, spondylosis with facet arthropathy without myelopathy Pt exhibited sufficient and substantial pain relief w RFA procedure. She will manage residual pain at home and may return to the clinic as needed. All patient questions answered I have spent less than 30 minutes on patient care today. Dr Michael was available by phone for the evaluation of this patient. The time was used to review the medical records including relevant urine studies and Prescription history (MAPs), review of the available imaging, evaluation and examination of the patient, coordination of care with the medical staff and if applicable referring physicians, as well as creation of the medical record PQRS Narrative: Smoking Status Never smoker Hx Alcohol Use (MH) Yes: RARELY Home Medications: Ambulatory Orders Brimonidine Tartrate [Alphagan P 0.2% Ophth Soln] 1 drop BOTH EYES BID 06/02/18 Calcium Carbonate [Calcium] 600 mg PO DAILY 06/02/18 Esomeprazole Magnesium [NexIUM] 20 mg PO BID 06/02/18 Fexofenadine HCl [Danuta Allergy] 180 mg PO DAILY 06/02/18 Gabapentin [Neurontin] 300 mg PO BID 06/02/18 Montelukast [Singulair] 10 mg PO HS 06/02/18 Multivitamins, Thera [Multivitamin (formulary)] 1 tab PO DAILY 06/02/18 Nabumetone [Relafen] 750 mg PO Q2D 06/02/18 Pravastatin Sodium [Pravachol] 20 mg PO HS 06/02/18 buPROPion [Wellbutrin] 75 mg PO DAILY 06/02/18 traMADol HCL [Ultram] 50 mg PO Q6HR PRN 06/02/18 Dorzolamide 2% [Trusopt 2%] 1 drops BOTH EYES BID 07/25/21 Magnesium Carb,Citrate,Oxide [Magnesium Complex] 400 mg PO HS 07/25/21 Unk Hair Skin And Nails Suppl 1 cap PO Q3D 12/25/21 Acetaminophen [Tylenol Arthritis] 650 mg PO DIRECTED PRN 02/20/22 Controlled Substance Measures - Controlled Substance Measures Is patient prescribed a controlled substance at discharge?: No
== END ==
LOC: PNWHC3 12:38
PROVIDERS: ATTEND Specialist
DX: M47.816 Spondylosis without myelopathy or radiculopathy, lumbar region (principal); M51.36 Other intervertebral disc degeneration, lumbar region; G89.29 Other chronic pain; Z91.011 Allergy to milk products; Z88.2 Allergy status to sulfonamides
CPT/HCPCS: 99211

== ENCOUNTER → 2022-05-07 | Outpatient (CLI) | payer MEDICARE ==
--- NOTE | 2022-05-08 10:17 | MM ---
Reason for Exam: Screening (asymptomatic). Last screening mammogram was performed 12 month(s) ago. Patient History: Menarche at age 14. Patient has no children. Postmenopausal. Maternal aunt had breast cancer, age 85. Risk Values: Nancy 5 year model risk: 2.0%. NCI Lifetime model risk: 4.5%. Prior Study Comparison: 03/29/2019 Bilateral Screening Mammogram, [facility]. 04/24/2020 Bilateral Screening Mammogram, [facility]. 04/25/2021 Bilateral Screening Mammogram, [facility]. Tissue Density: The breast tissue is heterogeneously dense. This may lower the sensitivity of mammography. Findings: Analyzed By CAD. There are benign-appearing round along with dystrophic and vascular calcifications bilaterally redemonstrated. Benign-appearing bilateral axillary lymph nodes are redemonstrated. There is no suspicious group of microcalcifications or new suspicious mass in either breast. Overall Assessment: Benign, BI-RAD 2 Management: Screening Mammogram of both breasts in 1 year. Some advise bilateral breast ultrasound surveillance in patients with background dense tissue. A clinical breast exam by your physician is recommended on an annual basis and results should be correlated with mammographic findings. Electronically signed and approved by: August Logan M.D.
== END | disposition home or self-care (01) ==
LOC: RADMAMWWP 13:43
PROVIDERS: ATTEND Obstetrics & Gynecology
DX: Z12.31 Encounter for screening mammogram for malignant neoplasm of breast (principal); Z80.3 Family history of malignant neoplasm of breast; Z78.0 Asymptomatic menopausal state
CPT/HCPCS: 77063; 77067

== ENCOUNTER → 2022-10-23 | Outpatient (CLI) | payer MEDICARE ==
[2022-10-23 16:41] LABS: ALT 26 U/L (8-44); AST 26 U/L (13-35); Alkaline Phosphatase 98 U/L (41-126); Calcium 9.7 mg/dL (8.7-10.3); Carbon Dioxide 29.2 mmol/L (21.6-31.8); Chloride 99 mmol/L (96-109); Sodium 139 mmol/L (135-145)
[2022-10-23 18:06] LABS: Basophils # (A) 0.05 X 10*3/uL (0.00-0.10); Basophils % (A) 0.8 %; Eosinophils # (A) 0.05 X 10*3/uL (0.04-0.35); Eosinophils % (A) 0.8 %; HGB 14.4 d/dL (12.0-15.0); Lymphocytes # (A) 1.22 X 10*3/uL (0.90-5.00); Lymphocytes % (A) 18.7 %; MCH 30.7 pg (27.0-32.0); MCV 95.9 FL (80.0-97.0); Monocytes # (A) 0.47 X 10*3/uL (0.20-1.00); Monocytes % (A) 7.2 %; NRBC Per 100 WBC 0 X 10*3/uL (0.00-0.01); Neutrophils % (A) 72.2 %; Platelet Count 318 X 10*3/uL (140-440); RBC 4.69 X 10*6/uL (4.10-5.20); RDW 13.1 % (11.5-14.5); WBC 6.51 X 10*3/uL (4.50-10.00)
== END | disposition home or self-care (01) ==
LOC: LABWHC1 11:03
PROVIDERS: ATTEND Internal Medicine Rheumatology
DX: M25.50 Pain in unspecified joint (principal); M81.0 Age-related osteoporosis without current pathological fracture; Z79.01 Long term (current) use of anticoagulants
CPT/HCPCS: 36415; 80051; 82306; 82310; 82565; 83970; 84075; 84450; 84460; 84520; 85025

== ENCOUNTER → 2023-06-06 | Outpatient (CLI) | payer MEDICARE ==
--- NOTE | 2023-06-09 19:29 | MM ---
Reason for Exam: Screening (asymptomatic). Last mammogram was performed 1 year(s) and 1 month(s) ago. Patient History: Menarche at age 14. Patient has no children. Postmenopausal. Maternal aunt had breast cancer, age 85. Risk Values: Nancy 5 year model risk: 2.0%. NCI Lifetime model risk: 4.2%. Prior Study Comparison: 04/24/2020 Bilateral Screening Mammogram, [facility]. 04/25/2021 Bilateral Screening Mammogram, [facility]. 05/07/2022 Bilateral MG 3D screening mammo w/cad, [facility]. Tissue Density: The breasts are heterogeneously dense, which may obscure small masses. Findings: Analyzed By CAD. Bilateral asymmetric densities are unchanged. Scattered coarse calcifications are unchanged. There is no suspicious group of microcalcifications or new suspicious mass in either breast. Overall Assessment: Benign, BI-RAD 2 Management: Screening Mammogram of both breasts in 1 year. . Patient should continue monthly self-breast exams. A clinical breast exam by your physician is recommended on an annual basis. This exam should not preclude additional follow-up of suspicious palpable abnormalities. Note on Nancy scores and lifetime risk: 1. A Nancy score greater than 3% is considered moderate risk. If this is the case, consider specialist referral to assess eligibility for a risk reducing agent. 2. If overall lifetime risk for the development of breast cancer is 20% or higher, the patient may qualify for future screening with alternating mammogram and breast MRI. Electronically signed and approved by: Zander Tran M.D. Radiologist
== END | disposition home or self-care (01) ==
LOC: RADMAMWWP 12:46
PROVIDERS: ATTEND Family Medicine
DX: Z12.31 Encounter for screening mammogram for malignant neoplasm of breast (principal); Z78.0 Asymptomatic menopausal state; Z80.3 Family history of malignant neoplasm of breast
CPT/HCPCS: 77063; 77067

== ENCOUNTER → 2024-07-01 | Outpatient (CLI) | payer MEDICARE ==
--- NOTE | 2024-07-01 13:24 | BD ---
EXAMINATION TYPE: Axial Bone Density DATE OF EXAM: 07/01/2024 CLINICAL HISTORY: 78 years old Female. ICD-10 CODE: M81.0 OSTEOPOROSIS , Additional History: Height: 60.5 Weight: 138 FRAX RISK QUESTIONS: Family History (Parent hip fracture): yes Glucocorticoids (More than 3mos): yes (Ex: prednisone, prednisolone, methylprednisolone, dexamethasone, and hydrocortisone). History of Fracture in Adulthood: yes 3. Menopause before 45: no RISK FACTORS HISTORY OF: height loss, fibromyalgia, arthritis, asthma, cholesterol, hx of lt hip 2019, scoliosis, renal Hip Fracture (Left): yes, 2019 Surgery to Hip(left,When: 2020 MEDICATIONS: asthma inhalers, atenolol, wellbutrin, reflux meds, gabapentin, cholesterol meds, Relafen, calcium, v it d, Osteoporosis Medications: Prolia, on and off x3 yes EXAM MEASUREMENTS: Bone mineral densitometry was performed using the [employer] System. Bone mineral density as measured about the Lumbar spine is: ----- L1-L4(G/cm2): 1.428 T Score Values are as follows: ----- L1: 2.4 ----- L2: 1.9 ----- L3: 1.4 ----- L4: 2.3 ----- L1-L4: 2.1 Z Score Values are as follows: ----- L1: 4.3 ----- L2: 3.8 ----- L3: 3.3 ----- L4: 4.2 ----- L1-L4: 3.9 Bone mineral density has: Increased 13.3% since study of: 04.24.2020 Bone mineral density about the R hip (g/cm2): 0.861 T Score values are as follows: -----R Neck: -1.2 -----R Total: -1.9 Z Score values are as follows: -----R Neck: 0.1 -----R Total: 0.7 Bone mineral density has: Increased 4.6% since study of: 04.24.2020 FRAX%s: The graph provided illustrates a 48.4% chance for a major osteoporotic fx and a 31.4% chance for the hips probability for fx in 10 years time. IMPRESSION: Osteopenia (T Score between -2.5 and -1) remains present. There is slightly increased risk of fracture and the patient may be considered for treatment. Re-Screen 2-5 years. NOTE: T-SCORE=SD OF THE YOUNG ADULT MEAN. [facility], , 07/01/2024 1:21 PM
--- NOTE | 2024-07-01 14:15 | MM ---
Reason for Exam: Screening (asymptomatic). Last mammogram was performed 1 year(s) and 1 month(s) ago. Patient History: Menarche at age 14. Patient has no children. Postmenopausal. Maternal aunt had breast cancer, age 85. Risk Values: Nancy 5 year model risk: 2.0%. NCI Lifetime model risk: 4.0%. Prior Study Comparison: 04/25/2021 Bilateral Screening Mammogram, [facility]. 05/07/2022 Bilateral MG 3D screening mammo w/cad, [facility]. 06/06/2023 Bilateral MG 3D screening mammo w/cad, [facility]. Tissue Density: The breasts are extremely dense, which lowers the sensitivity of mammography. Findings: Analyzed By CAD. There are small benign-appearing round, linear, and dystrophic calcifications bilaterally redemonstrated. Benign-appearing bilateral axillary lymph nodes are redemonstrated. There is no suspicious new group of microcalcifications or new suspicious mass in either breast. Overall Assessment: Benign, BI-RAD 2 Management: Screening Mammogram of both breasts in 1 year. Some advise annual bilateral breast ultrasound surveillance in patients with background dense tissue. Patient should continue monthly self-breast exams. A clinical breast exam by your physician is recommended on an annual basis. This exam should not preclude additional follow-up of suspicious palpable abnormalities. Note on Nancy scores and lifetime risk: 1. A Nancy score greater than 3% is considered moderate risk. If this is the case, consider specialist referral to assess eligibility for a risk reducing agent. 2. If overall lifetime risk for the development of breast cancer is 20% or higher, the patient may qualify for future screening with alternating mammogram and breast MRI. [facility], , 07/01/2024 2:12 PM. Electronically signed and approved by: August Logan M.D.
== END | disposition home or self-care (01) ==
LOC: RADBDWWP 12:33
PROVIDERS: ATTEND Family Medicine
DX: Z12.31 Encounter for screening mammogram for malignant neoplasm of breast (principal); M85.89 Other specified disorders of bone density and structure, multiple sites; R92.343 Mammographic extreme density, bilateral breasts; R92.1 Mammographic calcification found on diagnostic imaging of breast; Z78.0 Asymptomatic menopausal state; Z80.3 Family history of malignant neoplasm of breast
CPT/HCPCS: 77063; 77067; 77080